=== PATIENT | female | born 1990 | race Caucasian/White ===

== ENCOUNTER 2018-08-07 23:30 | Emergency (ER) | payer OTHER, SELFPAY ==
[2018-08-07 23:36] VITALS: BP 128/68; PULSE 78; RESP 16; TEMP 36.8; O2SAT 99
--- NOTE | 2018-08-07 23:43 | W.ED.GENAD ---
Discharge Plan Disposition Patient Disposition: HOME Condition: Good Discharge Details Chief Complaint: Orthopedic Clinical Impression: Plantar fasciitis Primary Care Provider: Sara Pagan ED Provider: Jakub Neves Home Meds and New Rx's Prescriptions: No Action epinephrine [EpiPen 2-Cam] 0.3 MG/0.3 ML auto-injector 0.3 mg IM ONCE Qty: 2 RF: 12 ibuprofen 800 MG tablet 800 mg PO TID PRNQty: 60 RF: 0 Discharge Instructions Instructions: Plantar Fasciitis Exercises (GEN), Plantar Fasciitis (ED) Additional Instructions: Your clinical symptoms are indicative of plantar fasciitis. Please take maximum of 600 mg of ibuprofen every 6 hours and 1000 mg of Tylenol every 6 hours. Please freeze a bottle of water, and roll it under your foot 8-16 times per day for 5 minutes each time. Please perform the stretches as directed. Please purchase new shoes with good cushion and arch support. Please follow-up promptly with your primary care provider for removal of the potential callus versus plantar wart. If you notice any worsening of your symptoms, or any new symptoms such as vomiting, diarrhea, fever, chills, shortness of breath, chest pain, numbness, weakness, or fainting , please return immediately to the emergency department for reevaluation. Please follow up with your primary care provider as soon as possible for reassessment and reevaluation. As always, it was a pleasure participating in your medical care today. Referrals: Sara Pagan, GEOPHYSICAL DRAFTER [Primary Care Provider] - Medical Decision Making This is a very pleasant 28-year-old female who presents with right heel pain for the last 1 to 2 weeks, worsened with walking and pressure on her right heel. Exam demonstrates reproducible tenderness on the base of the calcaneus over the plantar fascia. There is also a small lesion which I suspect is a small plantar wart over the area as well which is most likely significantly worsening her symptoms. Signs and symptoms appear clinically consistent with plantar fasciitis. With no history of trauma and no physical exam indication of fracture, I do not think that imaging is indicated. I did discuss this with the patient and she would also like to hold off on imaging for the time being. We will give a dose of Decadron here, Toradol, recommend continued NSAIDs, regular ice multiple times throughout the day, new shoes with arch support, and follow-up with your PCP for removal of the plantar wart history of note liquid nitrogen here. We discussed red flags which to return the patient understands. I have extensively reviewed the treatment plan and discharge instructions with the patient. I have addressed all patient concerns at this time. The patient was made aware of what symptoms to monitor for that would warrant a return to the emergency department. Discussed the plan with the patient, they demonstrate verbal understanding and agreement with our assessment and plan at this time. HPI General Date/Time Provider Initiated Documentation: 08/07/18 23:31. HPI Narrative: This is a very pleasant 28-year-old female who presents today for evaluation of right heel pain. The patient states that for the last 1 to 2 weeks she has had gradually worsening right heel pain. It is worse when she stands and walks. Her job requires her to walk around a significant amount. She describes the pain as achy sharp sensation only present when she steps down and applies weight to her foot. She also has noticed a small lump on the arch of her foot. She denies any numbness tingling or weakness. She denies any trauma, fall, significant joints. She denies any other complaints or modifying factors. She denies any previous injuries to the foot. Related Data Home Medications Medication Instructions Recorded Confirmed epinephrine [EpiPen 2-Cam] 0.3 mg IM ONCE #2 syringe 01/23/17 08/07/18 ibuprofen 800 mg PO TID PRN #60 tab-cap 01/23/17 08/07/18 Previous Rx's Medication Instructions Recorded epinephrine [EpiPen 2-Cam] 0.3 mg IM ONCE #2 syringe 01/23/17 Allergies Allergy/AdvReac Type Severity Reaction Status Date / Time venom-honey bee Allergy Intermediate Anaphylaxsi Unverified 08/07/18 23:41 [bee venom (honey bee)] s General Stated Complaint: Orthopedic RADHA: 4 Review of Systems Review of Systems All systems reviewed & are unremarkable except as noted in HPI and below PFSH Medical History Depression Paresthesia Shoulder pain Skin lesion of chest wall Surgical History Biopsy, Soft Tissue (01/20/17) section wisdom tooth extracton Family History Sister Hypertension Grandfather Myocardial infarction Grandmother Myocardial infarction Grandmother Hyperlipidemia Hypertension Stroke Father Alcohol abuse Mother Asthma Social History Smoking/Tobacco Use Status: Current every day Tobacco Type: cigarettes Alcohol Intake: never Drug use: Never Substance use type: does not use Do you feel safe at home: Yes Do you feel safe in your relationship?: Yes Exam Narrative Exam Narrative: 1.Const: Well-nourished, Well-developed, appearing stated age 2.Eyes: PERRL, no conjunctival injection, and symmetrical lids. 3.ENT: Atraumatic external nose and ears. Moist MM. Neck: Symmetric, trachea midline, No thyromegaly. 4.CVS: +S1/S2, No murmurs or gallops. Peripheral pulses 2+ and equal in all extremities. Brisk capillary refill in all extremities. 5.RESP: Unlabored respiratory effort. Clear to auscultation bilaterally. No wheezes rales or rhonchi 6.GI: Soft, Nontender/Nondistended, No hepatosplenomegaly. No guarding or rebound. 7.MSK: Normocephalic/Atraumatic, Extremities w/o deformity. No cyanosis or clubbing, Normal movement of all extremities. Right foot demonstrates no significant lesions or traumatic abnormalities. Patient does have tenderness over the base of the calcaneus, as well as some superficial tenderness on the arch by the plantar fascia. There is also a small lesion I suspect to be a small plantar wart. This is also notably tender. No evidence of bleeding, bruising, or other significant abnormalities. No tenderness on palpation throughout the rest of the foot. notable calluses throughout. 8.Skin: Warm, Dry. No rashes or lesions. 9.Neuro: tub wash operator II-XII grossly intact. Sensation grossly intact, no focal neurologic deficits. 10.Psych: (AAO) x3. Appropriate mood and affect Course Vital Signs Temperature 36.8 C 08/07/18 23:36 Pulse 78 08/07/18 23:36 Respiratory Rate 16 08/07/18 23:36 Blood Pressure 128/68 08/07/18 23:36 Pulse Oximetry 99 08/07/18 23:36 Temperature 36.8 C 08/07/18 23:36 Temperature Source Temporal Artery Scan 08/07/18 23:36 Pulse 78 08/07/18 23:36 Respiratory Rate 16 08/07/18 23:36 Respiratory Effort Short of Breath 08/07/18 23:40 Blood Pressure 128/68 08/07/18 23:36 Blood Pressure Position Sitting 08/07/18 23:36 Pulse Oximetry 99 08/07/18 23:36 Oxygen Delivery Method Room Air 08/07/18 23:36 Oxygen Flow Rate 0 08/07/18 23:36 Pain Level 9 08/07/18 23:36
[2018-08-07] MEDS: Dexamethasone 4 MG TAB 12 MG PO (23:47)
[2018-08-07] MEDS: Ketorolac 30 MG/ML VIAL IM (23:48)
--- NOTE | 2018-08-07 23:49 | ED.GENADUL_ITS ---
Discharge Plan Disposition Patient Disposition: HOME Condition: Good Discharge Details Chief Complaint: Orthopedic Clinical Impression: Plantar fasciitis Primary Care Provider: Sara Pagan ED Provider: Jakub Neves Home Meds and New Rx's Prescriptions: No Action epinephrine [EpiPen 2-Cam] 0.3 MG/0.3 ML auto-injector 0.3 mg IM ONCE Qty: 2 RF: 12 ibuprofen 800 MG tablet 800 mg PO TID PRNQty: 60 RF: 0 Discharge Instructions Instructions: Plantar Fasciitis Exercises (GEN), Plantar Fasciitis (ED) Additional Instructions: Your clinical symptoms are indicative of plantar fasciitis. Please take maximum of 600 mg of ibuprofen every 6 hours and 1000 mg of Tylenol every 6 hours. Please freeze a bottle of water, and roll it under your foot 8-16 times per day for 5 minutes each time. Please perform the stretches as directed. Please purchase new shoes with good cushion and arch support. Please follow-up promptly with your primary care provider for removal of the potential callus versus plantar wart. If you notice any worsening of your symptoms, or any new symptoms such as vomiting, diarrhea, fever, chills, shortness of breath, chest pain, numbness, weakness, or fainting , please return immediately to the emergency department for reevaluation. Please follow up with your primary care provider as soon as possible for reassessment and reevaluation. As always, it was a pleasure participating in your medical care today. Referrals: Sara Pagan, GREASER HELPER [Primary Care Provider] - Medical Decision Making This is a very pleasant 28-year-old female who presents with right heel pain for the last 1 to 2 weeks, worsened with walking and pressure on her right heel. Exam demonstrates reproducible tenderness on the base of the calcaneus over the plantar fascia. There is also a small lesion which I suspect is a small plantar wart over the area as well which is most likely significantly worsening her symptoms. Signs and symptoms appear clinically consistent with plantar fasciitis. With no history of trauma and no physical exam indication of fracture, I do not think that imaging is indicated. I did discuss this with the patient and she would also like to hold off on imaging for the time being. We will give a dose of Decadron here, Toradol, recommend continued NSAIDs, regular ice multiple times throughout the day, new shoes with arch support, and follow- up with your PCP for removal of the plantar wart history of note liquid nitrogen here. We discussed red flags which to return the patient understands. I have extensively reviewed the treatment plan and discharge instructions with the patient. I have addressed all patient concerns at this time. The patient was made aware of what symptoms to monitor for that would warrant a return to the emergency department. Discussed the plan with the patient, they demonstrate verbal understanding and agreement with our assessment and plan at this time. HPI General Date/Time Provider Initiated Documentation: 08/07/18 23:31 . HPI Narrative: This is a very pleasant 28-year-old female who presents today for evaluation of right heel pain. The patient states that for the last 1 to 2 weeks she has had gradually worsening right heel pain. It is worse when she stands and walks. Her job requires her to walk around a significant amount. She describes the pain as achy sharp sensation only present when she steps down and applies weight to her foot. She also has noticed a small lump on the arch of her foot. She denies any numbness tingling or weakness. She denies any trauma, fall, significant joints. She denies any other complaints or modifying factors. She denies any previous injuries to the foot. Related Data Home Medications Medication Instructions Recorded Confirmed epinephrine [EpiPen 2-Cam] 0.3 mg IM ONCE #2 syringe 01/23/17 08/07/18 ibuprofen 800 mg PO TID PRN #60 tab-cap 01/23/17 08/07/18 Previous Rx's Medication Instructions Recorded epinephrine [EpiPen 2-Cam] 0.3 mg IM ONCE #2 syringe 01/23/17 Allergies Allergy/AdvReac Type Severity Reaction Status Date / Time venom-honey bee Allergy Intermediate Anaphylaxsi Unverified 08/07/18 23:41 [bee venom (honey bee)] s General Stated Complaint: Orthopedic RADHA: 4 Review of Systems Review of Systems All systems reviewed & are unremarkable except as noted in HPI and below PFSH Medical History Depression Paresthesia Shoulder pain Skin lesion of chest wall Surgical History Biopsy, Soft Tissue (01/20/17) section wisdom tooth extracton Family History Sister Hypertension Grandfather Myocardial infarction Grandmother Myocardial infarction Grandmother Hyperlipidemia Hypertension Stroke Father Alcohol abuse Mother Asthma Social History Smoking/Tobacco Use Status: Current every day Tobacco Type: cigarettes Alcohol Intake: never Drug use: Never Substance use type: does not use Do you feel safe at home: Yes Do you feel safe in your relationship?: Yes Exam Narrative Exam Narrative: 1.Const: Well-nourished, Well-developed, appearing stated age 2.Eyes: PERRL, no conjunctival injection, and symmetrical lids. 3.ENT: Atraumatic external nose and ears. Moist MM. Neck: Symmetric, trachea midline, No thyromegaly. 4.CVS: +S1/S2, No murmurs or gallops. Peripheral pulses 2+ and equal in all extremities. Brisk capillary refill in all extremities. 5.RESP: Unlabored respiratory effort. Clear to auscultation bilaterally. No wheezes rales or rhonchi 6.GI: Soft, Nontender/Nondistended, No hepatosplenomegaly. No guarding or rebound. 7.MSK: Normocephalic/Atraumatic, Extremities w/o deformity. No cyanosis or clubbing, Normal movement of all extremities. Right foot demonstrates no si gnificant lesions or traumatic abnormalities. Patient does have tenderness over the base of the calcaneus, as well as some superficial tenderness on the arch by the plantar fascia. There is also a small lesion I suspect to be a small plantar wart. This is also notably tender. No evidence of bleeding, bruising, or other significant abnormalities. No tenderness on palpation throughout the rest of the foot. notable calluses throughout. 8.Skin: Warm, Dry. No rashes or lesions. 9.Neuro: insulator helper II-XII grossly intact. Sensation grossly intact, no focal neurologic deficits. 10.Psych: (AAO) x3. Appropriate mood and affect Course Vital Signs Temperature 36.8 C 08/07/18 23:36 Pulse 78 08/07/18 23:36 Respiratory Rate 16 08/07/18 23:36 Blood Pressure 128/68 08/07/18 23:36 Pulse Oximetry 99 08/07/18 23:36 Temperature 36.8 C 08/07/18 23:36 Temperature Source Temporal Artery Scan 08/07/18 23:36 Pulse 78 08/07/18 23:36 Respiratory Rate 16 08/07/18 23:36 Respiratory Effort Short of Breath 08/07/18 23:40 Blood Pressure 128/68 08/07/18 23:36 Blood Pressure Position Sitting 08/07/18 23:36 Pulse Oximetry 99 08/07/18 23:36 Oxygen Delivery Method Room Air 08/07/18 23:36 Oxygen Flow Rate 0 08/07/18 23:36 Pain Level 9 08/07/18 23:36
== END 2018-08-07 23:54 | disposition home or self-care (01) ==
LOC: ER 08-08 00:02
PROVIDERS: Emergency Provider Student in an Organized Health Care Education/Training Program; PCP Nurse Practitioner
DX: M72.2 Plantar fascial fibromatosis (principal)
CPT/HCPCS: 96374; 99284; J1885; J8540

== ENCOUNTER 2018-08-09 12:22 | Emergency (ER) | payer OTHER, SELFPAY ==
--- NOTE | 2018-08-09 12:25 | W.ED.GENAD ---
Discharge Plan Disposition Patient Disposition: HOME Condition: Stable Discharge Details Chief Complaint: Orthopedic Clinical Impression: Contusion of foot Primary Care Provider: Sara Pagan ED Provider: Gilma Loving Home Meds and New Rx's Prescriptions: Continued epinephrine [EpiPen 2-Cam] 0.3 MG/0.3 ML auto-injector 0.3 mg IM ONCE Qty: 2 RF: 12 ibuprofen 800 MG tablet 800 mg PO TID PRNQty: 60 RF: 0 Discharge Instructions Instructions: Crutch Instructions (ED), Foot Contusion (ED) Additional Instructions: Please return immediately to the emergency department if you develop any new or worsening symptoms or if you become otherwise concerned. It is extremely important that you call as soon as possible to make an appointment to be seen by your primary care doctor in follow-up for this visit. Referrals: Sara Pagan, REAL ESTATE OFFICER [Primary Care Provider] - Discharge Data Discharge Date/Time-TO BE ENTERED AT DEPARTURE: 08/09/18 14:18 Medical Decision Making Crystal Piedra is a 28-year-old woman with history of asthma who presented to the emergency department with left foot pain after accidentally kicking a metal door last night. On exam patient is well and nontoxic appearing. Left foot and ankle diffusely tender without skin wound or overlying skin changes, no edema. Concern for fracture versus contusion. Exam/history is not consistent with vascular injury, infectious etiology, fracture of the proximal tibia/fibula. Plan for x-ray foot and ankle. Foot and ankle x-rays reviewed by myself in conjunction with radiology: No acute findings Concern for likely contusion. Plan for lace up ankle stabilizer, crutches, weightbearing as tolerated, p.o. ibuprofen for pain. I had a lengthy discussion with patient regarding return to emergency department precautions, importance of outpatient follow-up with her PCP, and home care. Patient verbalized understanding of plan was amenable. Patient was discharged to home with clear plan for outpatient follow-up. All questions were answered. Medical Records Medical records reviewed: Yes I reviewed the patient's medical records. HPI General Mode of arrival: ambulatory. Date/Time Provider Initiated Documentation: 08/09/18 12:25. Limitations to Documentation: no limitations. Information obtained by: patient, RN notes reviewed and old records reviewed. HPI Narrative: Crystal Piedra 28 y/o with history of asthma presenting to the emergency department with left foot pain. Patient reports that last night she accidentally kicked a metal door, and has had pain in her foot since then. She denies any other injury or pain. No numbness or weakness. No skin wound. Patient reports pain with weightbearing, and has been limping since the time of the injury. Feels otherwise well in her usual state of health. Related Data Home Medications Medication Instructions Recorded Confirmed epinephrine [EpiPen 2-Cam] 0.3 mg IM ONCE #2 syringe 01/23/17 08/09/18 ibuprofen 800 mg PO TID PRN #60 tab-cap 01/23/17 08/09/18 Previous Rx's Medication Instructions Recorded epinephrine [EpiPen 2-Cam] 0.3 mg IM ONCE #2 syringe 01/23/17 Allergies Allergy/AdvReac Type Severity Reaction Status Date / Time venom-honey bee Allergy Intermediate Anaphylaxsi Unverified 08/09/18 12:40 [bee venom (honey bee)] s General RADHA: 4 Review of Systems Review of Systems Constitutional: denies fevers Eyes: denies eye pain ENT: denies facial pain, dental pain, sore throat Cardiovascular: denies chest pain Respiratory: denies SOB, cough GI: denies abdominal pain, vomiting, diarrhea : denies flank pain MSK: denies back pain, neck pain, reports foot pain as per HPI Skin: denies rash Neuro: denies headaches, numbness, weakness PFSH Medical History Depression Paresthesia Shoulder pain Skin lesion of chest wall Surgical History Biopsy, Soft Tissue (01/20/17) section wisdom tooth extracton Family History Sister Hypertension Grandfather Myocardial infarction Grandmother Myocardial infarction Grandmother Hyperlipidemia Hypertension Stroke Father Alcohol abuse Mother Asthma Social History Smoking/Tobacco Use Status: Current every day Tobacco Type: cigarettes Alcohol Intake: never Drug use: Never Substance use type: does not use Do you feel safe at home: Yes Do you feel safe in your relationship?: Yes Exam Narrative Exam Narrative: Constitutional: well and [id number], pleasant, conversing normally HENT: head atraumatic/normocephalic/normal inspection, mucous membranes moist Eyes: conjunctiva normal, sclera normal, pupils 3mm b/l Neck: no stridor, normal ROM, trachea midline Chest: normal inspection Resp: normal work of breathing Cardio: normal rate, normal rhythm Skin: warm, dry, normal color, no rash Neuro: alert, not altered, grossly non-focal, normal tone Ext: no edema, left foot diffusely tender to palpation without overlying skin changes, DP pulse intact, normal sensation throughout the foot, left ankle with mild tenderness to palpation diffusely, able to range with some pain. Patient reports she is unable to range her toes secondary to pain. Brisk cap refill of the toes. Midshaft tib-fib and proximal tib-fib nontender to palpation. Psych: normal mood, normal affect, normal behavior
[2018-08-09 12:27] VITALS: BP 127/71; PULSE 81; RESP 16; TEMP 37.4; O2SAT 98
--- NOTE | 2018-08-09 12:34 | DI.RAD_ITS ---
SYMPTOMS/DIAGNOSIS: TRAUMA, FOOT PAIN, ANKLE PAIN LEFT ANKLE: Three views. No acute fracture or dislocation is identified. LEFT FOOT: Three views. No acute fracture or dislocation is present.
--- NOTE | 2018-08-09 12:40 | ED.GENADUL_ITS ---
Discharge Plan Disposition Patient Disposition: HOME Condition: Stable Discharge Details Chief Complaint: Orthopedic Clinical Impression: Contusion of foot Primary Care Provider: Saar Pagan ED Provider: Gilma Loving Home Meds and New Rx's Prescriptions: Continued epinephrine [EpiPen 2-Cam] 0.3 MG/0.3 ML auto-injector 0.3 mg IM ONCE Qty: 2 RF: 12 ibuprofen 800 MG tablet 800 mg PO TID PRNQty: 60 RF: 0 Discharge Instructions Instructions: Crutch Instructions (ED), Foot Contusion (ED) Additional Instructions: Please return immediately to the emergency department if you develop any new or worsening symptoms or if you become otherwise concerned. It is extremely important that you call as soon as possible to make an appointment to be seen by your primary care doctor in follow-up for this visit. Referrals: Sara Pagan, [employer] REPAIRER [Primary Care Provider] - Discharge Data Discharge Date/Time-TO BE ENTERED AT DEPARTURE: 08/09/18 14:18 Medical Decision Making Crystal Piedra is a 28-year-old woman with history of asthma who presented to the emergency department with left foot pain after accidentally kicking a metal door last night. On exam patient is well and nontoxic appearing. Left foot and ankle diffusely tender without skin wound or overlying skin changes, no edema. Concern for fracture versus contusion. Exam/history is not consistent with vascular injury, infectious etiology, fracture of the proximal tibia/fibula. Plan for x-ray foot and ankle. Foot and ankle x-rays reviewed by myself in conjunction with radiology: No acute findings Concern for likely contusion. Plan for lace up ankle stabilizer, crutches, weightbearing as tolerated, p.o. ibuprofen for pain. I had a lengthy discussion with patient regarding return to emergency department precautions, importance of outpatient follow-up with her PCP, and home care. Patient verbalized understanding of plan was amenable. Patient was discharged to home with clear plan for outpatient follow-up. All questions were answered. Medical Records Medical records reviewed: Yes I reviewed the patient's medical records. HPI General Mode of arrival: ambulatory . Date/Time Provider Initiated Documentation: 08/09/18 12:25 . Limitations to Documentation: no limitations . Information obtained by: patient, RN notes reviewed and old records reviewed . HPI Narrative: Crystal Piedra 28 y/o with history of asthma presenting to the emergency department with left foot pain. Patient reports that last night she accidentally kicked a metal door, and has had pain in her foot since then. She denies any other injury or pain. No numbness or weakness. No skin wound. Patient reports pain with weightbearing, and has been limping since the time of the injury. Feels otherwise well in her usual state of health. Related Data Home Medications Medication Instructions Recorded Confirmed epinephrine [EpiPen 2-Cam] 0.3 mg IM ONCE #2 syringe 01/23/17 08/09/18 ibuprofen 800 mg PO TID PRN #60 tab-cap 01/23/17 08/09/18 Previous Rx's Medication Instructions Recorded epinephrine [EpiPen 2-Cam] 0.3 mg IM ONCE #2 syringe 01/23/17 Allergies Allergy/AdvReac Type Severity Reaction Status Date / Time venom-honey bee Allergy Intermediate Anaphylaxsi Unverified 08/09/18 12:40 [bee venom (honey bee)] s General RADHA: 4 Review of Systems Review of Systems Constitutional: denies fevers Eyes: denies eye pain ENT: denies facial pain, dental pain, sore throat Cardiovascular: denies chest pain Respiratory: denies SOB, cough GI: denies abdominal pain, vomiting, diarrhea : denies flank pain MSK: denies back pain, neck pain, reports foot pain as per HPI Skin: denies rash Neuro: denies headaches, numbness, weakness PFSH Medical History Depression Paresthesia Shoulder pain Skin lesion of chest wall Surgical History Biopsy, Soft Tissue (01/20/17) section wisdom tooth extracton Family History Sister Hypertension Grandfather Myocardial infarction Grandmother Myocardial infarction Grandmother Hyperlipidemia Hypertension Stroke Father Alcohol abuse Mother Asthma Social History Smoking/Tobacco Use Status: Current every day Tobacco Type: cigarettes Alcohol Intake: never Drug use: Never Substance use type: does not use Do you feel safe at home: Yes Do you feel safe in your relationship?: Yes Exam Narrative Exam Narrative: Constitutional: well and [id number], pleasant, conversing normally HENT: head atraumatic/normocephalic/normal inspection, mucous membranes moist Eyes: conjunctiva normal, sclera normal, pupils 3mm b/l Neck: no stridor, normal ROM, trachea midline Chest: normal inspection Resp: normal work of breathing Cardio: normal rate, normal rhythm Skin: warm, dry, normal color, no rash Neuro: alert, not altered, grossly non-focal, normal tone Ext: no edema, left foot diffusely tender to palpation without overlying skin changes, DP pulse intact, normal sensation throughout the foot, left ankle with mild tenderness to palpation diffusely, able to range with some pain. Patient reports she is unable to range her toes secondary to pain. Brisk cap refill of the toes. Midshaft tib-fib and proximal tib-fib nontender to palpation. Psych: normal mood, normal affect, normal behavior
[2018-08-09] MEDS: Ibuprofen 600 MG TAB PO (14:02)
== END 2018-08-09 14:18 | disposition home or self-care (01) ==
PROVIDERS: Emergency Provider Student in an Organized Health Care Education/Training Program; PCP Nurse Practitioner
DX: S90.32XA Contusion of left foot, initial encounter (principal); M25.572 Pain in left ankle and joints of left foot; W22.8XXA Striking against or struck by other objects, initial encounter
CPT/HCPCS: 29515; 99284; 73610; 73630; 99282; E0114; L1902

== ENCOUNTER 2018-09-26 01:02 | Emergency (ER) | payer SELFPAY ==
[2018-09-26 01:07] VITALS: BP 123/79; PULSE 68; RESP 16; TEMP 36.9; O2SAT 98
--- NOTE | 2018-09-26 01:15 | ED.GENADUL_ITS ---
Discharge Plan Disposition Patient Disposition: HOME Condition: Stable Discharge Details Chief Complaint: DentalOral Clinical Impression: Odontalgia, Fracture of tooth Primary Care Provider: Sara Pagan ED Provider: Vernell Gomez Home Meds and New Rx's Prescriptions: New penicillin V potassium 500 mg tablet 500 mg PO QID 7 Days Qty: 28 RF: 0 Continued epinephrine [EpiPen 2-Cam] 0.3 MG/0.3 ML auto-injector 0.3 mg IM ONCE Qty: 2 RF: 12 ibuprofen 800 MG tablet 800 mg PO TID PRNQty: 60 RF: 0 Discharge Instructions Instructions: Acute Dental Trauma (ED), Toothache (ED) Additional Instructions: Call your dentist on Thursday to schedule a follow-up appointment for rachel rivera. Alternate Tylenol and Motrin as needed and directed for pain. Return to the emergency department if you develop any worsening or new concerning symptoms of fever, increased pain, redness, swelling, difficulty breathing or swallowing. Discharge Data Discharge Physician: Vernell Gomez Medical Decision Making 28-year-old female presents with left upper tooth pain for the past week after she broke her tooth while eating. Denies fever but does admit to radiation pain to her left cheek and ear. Vitals within normal limits. Dental fracture with tenderness to palpation of tooth #14 noted. No abscess noted. Patient speaking in full sentences, no drooling, submandibular swelling, signs of Anthony's angina. Normal ear exam and oropharynx. Dental pain likely due to dental fracture/exposure of deep contents with concern for possible infection. Patient instructed to alternate Tylenol and Motrin. 1 dose of penicillin given here as well as prescription. She was given the dental follow-up list and instructed to call on Thursday for follow-up and to return here at any time if worse. HPI General Mode of arrival: ambulatory . Date/Time Provider Initiated Documentation: 09/26/18 01:14 . Limitations to Documentation: no limitations . Information obtained by: patient . HPI Narrative: Patient is a 28-year-old female presents with left upper dental pain for the past week after she broke her tooth while eating. Patient states she was eating [employer] when she felt her left upper tooth break. She states she has had increasing pain since then which is radiating up her left facial cheek just to below her eye as well as to her left ear. She denies any blurry vision, fever, difficulty swallowing, difficulty breathing, sore throat, decreased hearing. She has been taking Motrin for pain. She states she was trying to see [facility] for follow-up but is unsure if she can follow-up here. Related Data Home Medications Medication Instructions Recorded Confirmed epinephrine [EpiPen 2-Cam] 0.3 mg IM ONCE #2 syringe 01/23/17 09/26/18 ibuprofen 800 mg PO TID PRN #60 tab-cap 01/23/17 09/26/18 penicillin V potassium 500 mg PO QID 7 Days #28 tab 09/26/18 Previous Rx's Medication Instructions Recorded epinephrine [EpiPen 2-Cam] 0.3 mg IM ONCE #2 syringe 01/23/17 penicillin V potassium 500 mg PO QID 7 Days #28 tab 09/26/18 Allergies Allergy/AdvReac Type Severity Reaction Status Date / Time venom-honey bee Allergy Intermediate Anaphylaxsi Unverified 09/26/18 01:15 [bee venom (honey bee)] s General Stated Complaint: DentalOral RADHA: 4 Review of Systems Review of Systems All systems reviewed & are unremarkable except as noted in HPI and below Constitutional Reports as per HPI, Denies chills and Denies fever(s) Eyes Denies blurry vision ENT Denies dizziness, Denies sore throat and Denies throat swelling Cardiovascular Denies chest pain and Denies dyspnea Respiratory Denies cough and Denies dyspnea Gastrointestinal Denies abdominal pain, Denies diarrhea and Denies vomiting Genitourinary Denies hematuria and Denies dysuria Musculoskeletal Denies back pain and Denies numbness Integumentary/Breasts Denies lesions and Denies rash Neurologic Denies dizziness, Denies focal weakness and Denies numbness Allergic/Immunologic Denies throat swelling [facility] Surgical History (Updated 12/16/17 @ 14:37 by Exosite MA) Biopsy, Soft Tissue (01/20/17) section wisdom tooth extracton Family History Sister Hypertension Grandfather Myocardial infarction Grandmother Myocardial infarction Grandmother Hyperlipidemia Hypertension Stroke Father Alcohol abuse Mother Asthma Social History Smoking/Tobacco Use Status: Current every day Tobacco Type: cigarettes Alcohol Intake: never Drug use: Never Substance use type: does not use Do you feel safe at home: Yes Do you feel safe in your relationship?: Yes Exam Const General: cooperative, healthy appearing and no acute distress HENMT Head: normal to inspection Ears: hearing grossly normal bilaterally, external ears normal and TM's normal bilaterally General nose exam: external nose normal Face and sinus: normal facial exam Teeth image: 1. There is a dental fracture with portion of tooth missing on anterior aspect of likely tooth #14. There is no surrounding abscess. Tooth is tender to palpation. No pulp or dentin exposed. Throat: posterior oropharynx normal Eyes General: appearance normal, both eyes and all related structures Pupils: PERRL EOM: EOM intact bilaterally Neck Neck: normal visual inspection and No submandibular swelling Lymphatic: no lymphadenopathy noted Chest Chest: normal inspection of the chest and no tenderness Resp Effort & Inspection: normal respiratory effort and able to speak in complete se ntences Cardio Rate: regular rate Skin General skin exam: no rashes or lesions noted Neuro General: alert, awake and oriented x3 Cognition: normal cognition Speech: speech normal Motor: muscle tone normal throughout Sensory Exam: no sensory deficits noted Extrem General: normal to inspection, full ROM, normal capillary refill, no calf tenderness bilaterally and no edema Psych Appearance: grossly normal Mental Status: mental status grossly normal Speech and Movement: speech and movement normal Affect: normal affect Course Vital Signs Temperature 98.4 F 09/26/18 01:07 Pulse 68 09/26/18 01:07 Respiratory Rate 16 09/26/18 01:07 Blood Pressure 123/79 09/26/18 01:07 Pulse Oximetry 98 09/26/18 01:07 Temperature 98.4 F 09/26/18 01:07 Temperature Source Temporal Artery Scan 09/26/18 01:07 Pulse 68 09/26/18 01:07 Respiratory Rate 16 09/26/18 01:07 Respiratory Effort 09/26/18 01:07 Blood Pressure 123/79 09/26/18 01:07 Pulse Oximetry 98 09/26/18 01:07 Oxygen Delivery Method Room Air 09/26/18 01:07 Oxygen Flow Rate 0 09/26/18 01:07 Pain Level 10 09/26/18 01:07
[2018-09-26] MEDS: Penicillin V POTASSIUM 500 MG TAB PO (01:37)
== END 2018-09-26 06:00 | disposition home or self-care (01) ==
LOC: ER 01:43
PROVIDERS: Emergency Provider Physician Assistant; PCP Nurse Practitioner
DX: K08.89 Other specified disorders of teeth and supporting structures (principal); K02.9 Dental caries, unspecified
CPT/HCPCS: 99283

== ENCOUNTER 2018-12-21 13:48 | Outpatient (REF) | payer SELFPAY ==
--- NOTE | 2018-12-21 13:15 | PAPFT_PTH ---
PATIENT: Crystal Piedra LOC: [facility] U#:[id number] AGE/SX: 28/F ROOM: RE12/21/[address]: Sara Pagan APRN : 1990 BED: DIS: 12/21/2018 SPEC #: [id number] RECD: 12/22/18 12:42 STATUS: BENJAMIN REStephanie #: [id number] NOHEMY: 12/21/18 13:[address]: Sara Pagan DEPT: [facility] Cytology RECD BY: Christina Stanton Tissues: 1 - CX/ENDOCX FOR PAP SMEARS Procedures: PAP THIN PREP/UVM Screening Comments: [id number] (CHLAMYDIA/GC)
[2018-12-23 12:52] LABS: Chlamydia Result Negative; GC Result Negative; Specimen Description SEE COMMENTS
== END 2018-12-21 14:08 ==
LOC: LBN 13:48
PROVIDERS: PCP Nurse Practitioner; Visit Provider Nurse Practitioner
DX: Z11.3 Encounter for screening for infections with a predominantly sexual mode of transmission (principal); Z12.4 Encounter for screening for malignant neoplasm of cervix; Z11.51 Encounter for screening for human papillomavirus (HPV)
CPT/HCPCS: 87491; 87591; 88142

== ENCOUNTER 2019-10-23 20:58 | Emergency (ER) | payer SELFPAY ==
[2019-10-23 21:05] VITALS: BP 133/75; PULSE 80; RESP 16; TEMP 36.7; O2SAT 97
--- NOTE | 2019-10-23 21:15 | DI.RAD_ITS ---
EXAM: XR FINGER RT LITTLE CLINICAL HISTORY: laceration TECHNIQUE: COMPARISON: No exams were available for comparison FINDINGS: Three views were obtained. There is reportedly a a history of laceration. No fracture is identified IMPRESSION: RADIATION DOSE DELIVERED: Total DLP
--- NOTE | 2019-10-23 21:58 | ED.GENADUL_ITS ---
Discharge Plan Disposition Patient Disposition: HOME Condition: Stable Discharge Details Chief Complaint: Laceration Clinical Impression: Finger laceration Primary Care Provider: Sara Pagan ED Provider: Gilma Loving Home Meds and New Rx's Prescriptions: Continued trazodone 50 mg tablet 50 mg PO HS PRN (Reason: sleep) Qty: 30 RF: 3 escitalopram oxalate 20 mg tablet 20 mg PO DAILY Qty: 90 RF: 3 epinephrine [EpiPen 2-Cam] 0.3 MG/0.3 ML auto-injector 0.3 mg IM ONCE Qty: 2 RF: 12 Discharge Instructions Instructions: Finger Laceration (ED), Skin Adhesive Care (ED) Additional Instructions: Please return immediately to the emergency department if you develop any new or worsening symptoms, if your condition does not improve as expected, or if you become otherwise concerned. It is extremely important that you call soon as possible to make an appointment to be seen in follow-up for this visit by your primary care doctor. Referrals: Arsenio Lugo MD [[facility] STAFF PHYSICIAN] - Sara Pagan NP [Primary Care Provider] - Discharge Data Discharge Date/Time-TO BE ENTERED AT DEPARTURE: 10/23/19 22:40 Medical Decision Making Crystal Piedra is a 29-year-old woman with history of anxiety, depression who presented to the emergency department with laceration to distal left fifth digit. On exam patient is well and nontoxic-appearing. 1 cm laceration to the left fifth digit at the level of the DIP joint, sensory deficit to lateral aspect of the digit distal to the wound. Wound is non-gaping, no apparent foreign body. Concern for possible nerve injury. Plan for x-ray to eval for foreign body. Exam/history is not consistent with flexor/extensor tendon injury, bony pathology, other wound. X-ray negative. Laceration irrigated copiously under pressure. Repaired with Dermabond. Finger splint placed. I had a lengthy discussion with Patient regarding return to emergency department precautions, home care, and importance of outpatient follow-up with PCP and Ortho for numbness. Pt verbalizes understanding of the plan and is amenable. Patient discharged to home with clear plan for outpatient follow-up. All questions were answered. Disposition decision was made weighing the risks and benefits of hospitalization versus outpatient treatment, the risk for further decompensation, and the patient's wishes. Medical Records Medical records reviewed: Yes I reviewed the patient's medical records. Imaging Data Radiologic Study: Attestation: I personally reviewed and interpreted this imaging study as follows: Radiologist's impression: Exam(s) PROCEDURE INFORMATION: Exam: XR Left Finger(s) Exam date and time: 10/23/2019 9:42 PM Age: 29 years old Clinical indication: Other: Laceration TECHNIQUE: Imaging protocol: XR Left fingers. Views: Minimum 2 views. COMPARISON: No relevant prior studies available. FINDINGS: Bones/joints: Normal trabecular architecture is seen throughout with no acute fractures detected. Soft tissues: No discrete soft tissue defects detected. IMPRESSION: No acute findings. HPI General Mode of arrival: ambulatory . Date/Time Provider Initiated Documentation: 10/23/19 21:09 . Limitations to Documentation: no limitations . Information obtained by: patient, RN notes reviewed and old records reviewed . HPI Narrative: Helena Piedra is a 29-year-old woman with history of depression, anxiety presenting to the emergency department with laceration. 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 Patient reports that she and a colleague noticed broken glass on the floor, patient reached for the glass and sustained a laceration. Patient reports that piece was relatively large, unclear as to whether there could be retained foreign body. Patient reports that the lateral aspect of the finger distal to the wound feels numb to her. She denies any other injury. She denies any other pain or symptoms, no recent illness. Patient reports she was previously in her usual state of health. Patient states that she is unsure when her last tetanus was, she does not know whether it was more than 5 years ago or not. Related Data Home Medications Medication Instructions Recorded Confirmed epinephrine [EpiPen 2-Cam] 0.3 mg IM ONCE #2 syringe 01/23/17 10/23/19 trazodone 50 mg tablet 50 mg PO HS PRN #30 tab 08/11/19 10/23/19 escitalopram oxalate 20 mg tablet 20 mg PO DAILY #90 tab 08/30/19 10/23/19 Previous Rx's Medication Instructions Recorded epinephrine [EpiPen 2-Cam] 0.3 mg IM ONCE #2 syringe 01/23/17 trazodone 50 mg tablet 50 mg PO HS PRN #30 tab 08/11/19 escitalopram oxalate 20 mg tablet 20 mg PO DAILY #90 tab 08/30/19 Allergies Allergy/AdvReac Type Severity Reaction Status Date / Time venom-honey bee Allergy Intermediate Anaphylaxsi Verified 10/23/19 21:09 [bee venom (honey bee)] s General Stated Complaint: Laceration RADHA: 4 Review of Systems Narrative: Constitutional: denies fevers Eyes: denies eye pain ENT: denies ear pain, dental pain, sore throat Cardiovascular: denies chest pain Respiratory: denies SOB, cough GI: denies abdominal pain, vomiting : denies flank pain MSK: denies back pain, neck pain, arthralgias Skin: Reports wound as per HPI Neuro: denies headaches, weakness, reports numbness distal to wound fifth digit PFSH Medical History Acute serous otitis media of right ear (Acute) Anxiety (Chronic) Depression Depressive disorder (Chronic 02/06/16) Insomnia (Acute) Paresthesia Shoulder pain Skin lesion of chest wall Surgical History Biopsy, Soft Tissue (01/20/17) skin of chest - intradermal nevus section hddcruyzo-oiz-zryrubvnx wisdom tooth extracton Family History Sister Hypertension Grandfather Myocardial infarction Grandmother Myocardial infarction Grandmother , Stroke at age 86. Hyperlipidemia Hypertension Stroke Father Alcohol abuse Mother Asthma Social History Smoking/Tobacco Use Status: Current every day Tobacco Type: cigarettes Quit status: considering quitting Alcohol Intake: never Drug use: Never Substance use type: does not use Adopted: No Caregiver/Support person: No Foster care: No Household members: children Housing: apartment Number of Children: 1 Communication Needs: Corrective Lenses Education Level: college Details: some What type of physical activity do you participate in: walking Frequency: 1-2 times per week Seatbelt use: always Drive intox or ride w/intox regional truck driver: No Working smoke detector in home: Yes Fire extinguisher in home: Yes Carbon monox detector in home: Yes Firearms in home: No Do you feel safe at home: Yes Do you feel safe in your relationship?: Yes Exam Narrative Exam Narrative: Constitutional: well and [id number]-[id number], pleasant, conversing normally HENT: head atraumatic/normocephalic/normal inspection, mucous membranes moist Eyes: conjunctiva normal, sclera normal, pupils 3mm b/l Neck: no stridor, normal ROM, trachea midline Resp: normal work of breathing, no respiratory distress Cardio: normal rate, normal rhythm, radial pulses intact and symmetric Skin: warm, dry, normal color, no rash, 1 cm superficial laceration lateral aspect of left fifth digit at level of DIP joint, no bleeding Neuro: alert, not altered, grossly non-focal, normal tone, positive sensory deficit lateral aspect of tip of left fifth digit, loss of two-point discrimination in this area Ext: no edema Psych: normal mood, normal affect, normal behavior Course Vital Signs Vital signs: Vital Signs Temperature 36.7 C 10/23/19 21:05 Pulse 80 10/23/19 21:05 Respiratory Rate 16 10/23/19 21:05 Blood Pressure 133/75 10/23/19 21:05 Pulse Oximetry 97 10/23/19 21:05 Temperature 36.7 C 10/23/19 21:05 Temperature Source Skin 10/23/19 21:05 Pulse 80 10/23/19 21:05 Respiratory Rate 16 10/23/19 21:05 Respiratory Effort Non-Labored 10/23/19 21:08 Blood Pressure 133/75 10/23/19 21:05 Blood Pressure Position Sitting 10/23/19 21:05 Pulse Oximetry 97 10/23/19 21:05 Oxygen Delivery Method Room Air 10/23/19 21:05 Oxygen Flow Rate 0 10/23/19 21:05 Pain Level 8 10/23/19 21:05 Procedures Laceration Laceration 1: Site: hand Side (If applicable): left Size (cm): 1 Description: linear and clean Depth: simple, single layer Pre-repair: wound explored and irrigated extensively Skin layer closed with: other (dermabond)
--- NOTE | 2019-10-23 22:09 | DI.VRAD_ITS ---
PROCEDURE INFORMATION: Exam: XR Left Finger(s) Exam date and time: 10/23/2019 9:42 PM Age: 29 years old Clinical indication: Other: Laceration TECHNIQUE: Imaging protocol: XR Left fingers. Views: Minimum 2 views. COMPARISON: No relevant prior studies available. FINDINGS: Bones/joints: Normal trabecular architecture is seen throughout with no acute fractures detected. Soft tissues: No discrete soft tissue defects detected. IMPRESSION: No acute findings. Dictated and Authenticated by: Vikas Lr MD. Ordering:ZACKERY Dillard MD
[2019-10-23 22:38] VITALS: BP 130/66; PULSE 78; RESP 16; TEMP 36.7; O2SAT 97
== END 2019-10-23 22:40 | disposition home or self-care (01) ==
PROVIDERS: Emergency Provider Student in an Organized Health Care Education/Training Program; PCP Nurse Practitioner
DX: S61.216A Laceration without foreign body of right little finger without damage to nail, initial encounter (principal); W25.XXXA Contact with sharp glass, initial encounter; Y99.0 Civilian activity done for income or pay; R20.0 Anesthesia of skin
CPT/HCPCS: 12001; 29130; 81025; 99283; 73140; 99281

== ENCOUNTER 2020-07-16 21:30 | Emergency (ER) | payer OTHER, SELFPAY ==
[2020-07-16 21:36] VITALS: BP 147/78; PULSE 75; RESP 16; TEMP 36.8; O2SAT 97
--- NOTE | 2020-07-16 21:45 | DI.RAD_ITS ---
Exam(s) XR CHEST 2V PA LATERAL EXAM: XR CHEST 2V PA LATERAL CLINICAL HISTORY: cough and tight TECHNIQUE: 2D digital imaging was performed. COMPARISON: CR CHEST 2 VIEWS PA,LAT from 07/18/2017 FINDINGS: The heart size is normal. There is mildly increased peribronchial thickening and peribronchial nahed ngs. No focal consolidation, effusion or pneumothorax is seen. No bony abnormalities are identified . IMPRESSION: Mild bilateral perihilar infiltrates and bronchial thickening, infectious versus inflammatory pneumon itis. DATA REPOSITORY: RADIATION DOSE DELIVERED:
--- NOTE | 2020-07-16 21:59 | W.ED.GENAD ---
Discharge Plan Disposition Patient Disposition: HOME Condition: Improving Discharge Details Clinical Impression: Bronchospasm, acute Primary Care Provider: Sara Pagan ED Provider: Arsenio Miranda Home Meds and New Rx's Prescriptions: New prednisone 50 mg tablet 50 mg PO DAILY 5 Days Qty: 5 RF: 0 Continued escitalopram oxalate 20 mg tablet 20 mg PO DAILY Qty: 90 RF: 3 trazodone 100 mg tablet 100 mg PO HS PRN (Reason: insomnia) Qty: 30 RF: 1 bupropion HCl [Wellbutrin XL] 300 mg tablet extended release 24 hr 300 mg PO QAM Qty: 30 RF: 1 lorazepam 1 mg tablet 1 mg PO BID PRN (Reason: anxiety) Qty: 20 RF: 0 epinephrine [EpiPen 2-Cam] 0.3 MG/0.3 ML auto-injector 0.3 mg IM ONCE Qty: 2 RF: 12 Discharge Instructions Instructions: Bronchospasm (ED) Additional Instructions: Continue your routine medications. Please take prednisone as prescribed, next dose tomorrow. May use the provided inhaler as needed 1 to 2 puffs every 4. Return if you feel you need to use it greater than every 4 hours. Please follow-up with your regular doctor if not improved in 5 days time Medical Decision Making This is a 30-year-old female who presents from home. States he has had 1 week of feeling her neck glands swollen with a dry cough production of sputum. She was seen in outlying urgent care where she reports negative strep test and a negative Covid test. She was told she may have allergies and was placed on Flonase with minimal improvement. The patient is a smoker with a history of reactive airway disease. Does not currently have an inhaled beta agonist. On my exam she is well-appearing, conversant and oxygenating normally. She has mild submandibular lymphadenopathy and diminished breath sounds with end expiratory wheeze. Differential diagnosis includes seasonal allergies with bronchospasm, mild viral syndrome. Patient was referred for x-ray, given prednisone and albuterol inhaler HPI General Mode of arrival: ambulatory. Date/Time Provider Initiated Documentation: 07/16/20 21:30. Limitations to Documentation: no limitations. Information obtained by: patient. History of Present Illness 30 year old F presents to the emergency department with the chief complaint of Cough and short of breath, swollen glands , described as moderate, Quality is described as dull, and is localized to the neck and chest. Patient reports no radiation. Patient started experiencing this day(s) and it has been intermittent. No relieving factors improve symptom(s), No exacerbating factors reported . Patient notes cough; denies chest pain, fever/chills, shortness of breath and weakness. Patient did receive the following treatments prior to arrival, other (For wound) Related Data Home Medications Medication Instructions Recorded Confirmed epinephrine [EpiPen 2-Cam] 0.3 mg IM ONCE #2 syringe 01/23/17 10/23/19 escitalopram oxalate 20 mg tablet 20 mg PO DAILY #90 tab 08/30/19 10/23/19 bupropion HCl 300 mg 24 hr tablet, 300 mg PO QAM #30 tab 04/19/20 04/19/20 extended release lorazepam 1 mg tablet 1 mg PO BID PRN #20 tab 04/19/20 04/19/20 trazodone 100 mg tablet 100 mg PO HS PRN #30 tab 04/19/20 04/19/20 prednisone 50 mg PO DAILY 5 Days #5 tab 07/16/20 Previous Rx's Medication Instructions Recorded epinephrine [EpiPen 2-Cam] 0.3 mg IM ONCE #2 syringe 01/23/17 escitalopram oxalate 20 mg tablet 20 mg PO DAILY #90 tab 08/30/19 bupropion HCl 300 mg 24 hr tablet, 300 mg PO QAM #30 tab 04/19/20 extended release lorazepam 1 mg tablet 1 mg PO BID PRN #20 tab 04/19/20 trazodone 100 mg tablet 100 mg PO HS PRN #30 tab 04/19/20 prednisone 50 mg PO DAILY 5 Days #5 tab 07/16/20 Allergies Allergy/AdvReac Type Severity Reaction Status Date / Time venom-honey bee Allergy Intermediate Anaphylaxsi Verified 10/23/19 21:09 [bee venom (honey bee)] s General Stated Complaint: RespSymp RADHA: 4 Review of Systems Narrative: 6 systems reviewed and otherwise negative. Negative Covid test. Patient [facility] Medical History (Updated 07/16/20 @ 22:11 by Arsenio Miranda MD) Acute serous otitis media of right ear Anxiety Depression Depressive disorder (02/06/16) Insomnia Paresthesia Shoulder pain Skin lesion of chest wall Surgical History Biopsy, Soft Tissue (01/20/17) skin of chest - intradermal nevus section iyupyogic-pwj-aijivydzv wisdom tooth extracton Family History Sister Hypertension Grandfather Myocardial infarction Grandmother Myocardial infarction Grandmother , Stroke at age 86. Hyperlipidemia Hypertension Stroke Father Alcohol abuse Mother Asthma Social History Smoking/Tobacco Use Status: Current every day Tobacco Type: cigarettes Quit status: considering quitting Smoking risk assessment performed?: Yes Alcohol Intake: never Drug use: Never Substance use type: does not use Adopted: No Caregiver/Support person: No Foster care: No Household members: children Housing: apartment Number of Children: 1 Communication Needs: Corrective Lenses Education Level: college Details: some What type of physical activity do you participate in: walking Frequency: 1-2 times per week Seatbelt use: always Drive intox or ride w/intox tier truck driver: No Working smoke detector in home: Yes Fire extinguisher in home: Yes Carbon monox detector in home: Yes Firearms in home: No Do you feel safe at home: Yes Do you feel safe in your relationship?: Yes Exam Narrative Exam Narrative: GEN: awake, alert, oriented 3. Pleasant, well groomed, interactive. HEAD: Normocephalic, atraumatic ENT: Mucous membranes moist, oropharynx unremarkable, mild anterior cervical lymphadenopathy in the submandibular region TMs clear bilateral external ear exam unremarkable EYES: PERRL, EOMI NECK: Full ROM, no AUGUSTIN, no menigismus CHEST/RESP: Nontender, diminished bilaterally with faint end expiratory wheeze CARDIOVASCULAR: RRR, no murmur, rub hector. 2+ Rad pulse bilateral ABDOMEN: Soft, nontender, no mass. +Bowel sounds EXT: Full ROM, no edema, no rash Neuro: Grossly normal neurologic exam, conversant, interactive. Psych: Speech fluent, thoughts congruent, affect normal Course Vital Signs Vital signs: Vital Signs Temperature 36.8 C 07/16/20 21:36 Pulse 75 07/16/20 21:36 Respiratory Rate 16 07/16/20 21:36 Blood Pressure 147/78 H 07/16/20 21:36 Pulse Oximetry 97 07/16/20 21:36 Temperature 36.8 C 07/16/20 21:36 Temperature Source Temporal Artery Scan 07/16/20 21:36 Pulse 75 07/16/20 21:36 Respiratory Rate 16 07/16/20 21:36 Respiratory Effort 07/16/20 21:40 Respiratory Depth Normal 07/16/20 21:40 Blood Pressure 147/78 H 07/16/20 21:36 Blood Pressure Position Sitting 07/16/20 21:36 Pulse Oximetry 97 07/16/20 21:36 Oxygen Delivery Method Room Air 07/16/20 21:36 Oxygen Flow Rate 0 07/16/20 21:36
[2020-07-16] MEDS: Albuterol HFA 8 GM 60 PUFF INH IH (22:01)
[2020-07-16] MEDS: predniSONE 20 MG TAB 60 MG PO (22:01)
--- NOTE | 2020-07-16 23:26 | DI.VRAD_ITS ---
PROCEDURE INFORMATION: Exam: XR Chest Exam date and time: 07/16/2020 9:53 PM Age: 30 years old Clinical indication: Cough and other: Chest tighness; Patient HX: Cough and chest tightness TECHNIQUE: Imaging protocol: XR of the chest. Views: 2 views. COMPARISON: CR CHEST 2 VIEWS PA,LAT 07/19/2017 12:47 AM FINDINGS: Lungs: Mild diffuse peribronchial thickening, likely infectious and/or inflammatory in etiology. No pulmonary consolidation. Pleural spaces: Unremarkable. No pleural effusion. No pneumothorax. Heart/Mediastinum: No cardiomegaly. Bones/joints: No acute findings. IMPRESSION: Mild diffuse peribronchial thickening, likely infectious and/or inflammatory in etiology. No pulmonary consolidation. Dictated and Authenticated by: Ifrah Cameron MD. Ordering:KATHERIN Cesar MD
[2020-07-16] MEDS: Inhaler, Assist Device 1 EACH MC (23:31)
== END 2020-07-16 23:38 | disposition home or self-care (01) ==
PROVIDERS: Emergency Provider Emergency Medicine; PCP Nurse Practitioner
DX: J98.01 Acute bronchospasm (principal); F17.210 Nicotine dependence, cigarettes, uncomplicated; R59.0 Localized enlarged lymph nodes; Z03.818 Encounter for observation for suspected exposure to other biological agents ruled out
CPT/HCPCS: 99283; 71046; 99284; J7512

== ENCOUNTER 2021-03-12 17:27 | Outpatient (REF) | payer OTHER, SELFPAY ==
[2021-03-16 17:00] LABS: Codeine Negative ng/mL (Cutoff: 25); Dihydrocodeine Negative ng/mL (Cutoff: 25); Hydrocodone Negative ng/mL (Cutoff: 25); Hydromorphone Negative ng/mL (Cutoff: 25); Morphine Negative ng/mL (Cutoff: 25); Naloxone Negative ng/mL (Cutoff: 25); Norhydrocodone Negative ng/mL (Cutoff: 25); Noroxymorphone Negative ng/mL (Cutoff: 25); Opiates Interpretation Positive.
== END 2021-03-12 17:28 | disposition home or self-care (01) ==
LOC: LBN 17:27
PROVIDERS: PCP Nurse Practitioner; Visit Provider Nurse Practitioner
DX: F90.9 Attention-deficit hyperactivity disorder, unspecified type (principal)
CPT/HCPCS: 80361; 80362; 80365

== ENCOUNTER 2021-04-02 10:23 | Outpatient (REF) | payer OTHER, SELFPAY ==
[2021-04-05 14:25] LABS: 2-OH-Ethyl-Flurazepam Negative ng/mL (Cutoff: 10); 7-NH-Clonazepam Negative ng/mL (Cutoff: 10); 7-NH-Flunitrazepam Negative ng/mL (Cutoff: 10); Alpha OH-Alprazolam Negative ng/mL (Cutoff: 10); Alpha-OH Midazolam Negative ng/mL (Cutoff: 10); Alpha-OH-Triazolam Negative ng/mL (Cutoff: 10); Alprazolam Negative ng/mL (Cutoff: 10); Benzodiazepines Interpretation Positive.; Chlordiazepoxide Negative ng/mL (Cutoff: 10); Clobazam Negative ng/mL (Cutoff: 10); Clonazepam Negative ng/mL (Cutoff: 10); Diazepam Negative ng/mL (Cutoff: 10); Flurazepam Negative ng/mL (Cutoff: 10); Lorazepam Negative ng/mL (Cutoff: 10); Midazolam Negative ng/mL (Cutoff: 10); N-Desmethylclobazam Negative ng/mL (Cutoff: 10); Prazepam Negative ng/mL (Cutoff: 10); Temazepam 11 ng/mL (Cutoff: 10); Triazolam Negative ng/mL (Cutoff: 10); Zolpidem Carboxylic acid Negative ng/mL (Cutoff: 10)
== END 2021-04-02 10:24 | disposition home or self-care (01) ==
LOC: LBN 10:23
PROVIDERS: PCP Nurse Practitioner; Visit Provider Nurse Practitioner
DX: Z51.81 Encounter for therapeutic drug level monitoring (principal)
CPT/HCPCS: 80346

== ENCOUNTER 2021-05-13 13:18 | Outpatient (REF) | payer OTHER, SELFPAY | END 2021-05-13 13:19 | disposition home or self-care (01) | LOC: LBN 13:18 | PROVIDERS: PCP Nurse Practitioner; Visit Provider Nurse Practitioner Women's Health | DX: N61.1 Abscess of the breast and nipple (principal) | CPT/HCPCS: 87070; 87205 ==

== ENCOUNTER → 2021-06-24 04:02 | Outpatient (CLI) | payer SELFPAY | PROVIDERS: PCP Nurse Practitioner; Visit Provider Nurse Practitioner Women's Health ==

== ENCOUNTER 2021-11-11 15:27 | Emergency (ER) | payer SELFPAY ==
[2021-11-11 15:34] VITALS: BP 118/78; PULSE 73; RESP 18; TEMP 36.6; O2SAT 98
--- NOTE | 2021-11-11 16:15 | DI.RAD_ITS ---
Exam(s) XR WRIST LT COMPLETE EXAM: XR WRIST LT COMPLETE CLINICAL HISTORY: foosh, pain dist rad, heard pop. TECHNIQUE: 2D digital imaging was performed. COMPARISON: No exams were available for comparison FINDINGS: 3 views No evidence of fracture or dislocation. No significant ulnar variance. Bone density normal. No oss eous lesions. Scaphoid and scapholunate distance normal IMPRESSION: No significant findings. DATA REPOSITORY: RADIATION DOSE DELIVERED:
[2021-11-11] MEDS: Acetaminophen 500 MG TAB 1000 MG PO (17:03)
[2021-11-11] MEDS: Ibuprofen 800 MG TAB PO (17:03)
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
== END 2021-11-11 18:15 | disposition home or self-care (01) ==
PROVIDERS: Emergency Provider Student in an Organized Health Care Education/Training Program; PCP Nurse Practitioner
DX: S63.502A Unspecified sprain of left wrist, initial encounter (principal); F17.210 Nicotine dependence, cigarettes, uncomplicated; W19.XXXA Unspecified fall, initial encounter
CPT/HCPCS: 29130; 99283; 73110; 99282

== ENCOUNTER 2021-11-15 23:18 | Emergency (ER) | payer SELFPAY ==
[2021-11-15 23:26] VITALS: BP 150/89; PULSE 109; RESP 18; TEMP 36.8; O2SAT 100
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
[2021-11-15] MEDS: traMADol 50 MG TAB PO (23:49)
== END 2021-11-16 00:35 | disposition home or self-care (01) ==
PROVIDERS: Emergency Provider Registered Nurse Emergency; PCP Nurse Practitioner
DX: G89.11 Acute pain due to trauma (principal); M25.532 Pain in left wrist; F17.210 Nicotine dependence, cigarettes, uncomplicated; Y99.0 Civilian activity done for income or pay; W10.9XXA Fall (on) (from) unspecified stairs and steps, initial encounter
CPT/HCPCS: 99283

== ENCOUNTER 2022-04-10 12:47 | Emergency (ER) | payer SELFPAY ==
--- NOTE | 2022-04-10 12:45 | RT.EKG_ITS ---
APPROVED REPORT Exam: Resting ECG Reason for Exam: dizzy Patient Location: E HR:57 bpm ECG Measurements Heart Rate 57 AXIS MA 177 P 33 QRSd 94 QRS 5 QT 386 T 36 QTc 365 Conclusion Sinus bradycardia...rate< 60 Atrial premature complex...SV complex w/ short R-R interval
[2022-04-10 12:51] VITALS: BP 138/70; PULSE 52; RESP 18; TEMP 36.9; O2SAT 100
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
== END 2022-04-10 13:29 | disposition home or self-care (01) ==
PROVIDERS: Emergency Provider Physician Assistant; PCP Nurse Practitioner
DX: H66.91 Otitis media, unspecified, right ear (principal); R42 Dizziness and giddiness
CPT/HCPCS: 93005; 99283; 93010

== ENCOUNTER 2022-10-17 07:09 | Emergency (ER) | payer SELFPAY ==
[2022-10-17 07:14] VITALS: BP 128/68; PULSE 68; RESP 16; TEMP 36.6; O2SAT 100
--- NOTE | 2022-10-17 07:45 | DI.CT_ITS ---
Exam(s) CT ABDOMEN PELVIS W EXAM: CT ABDOMEN PELVIS W CLINICAL HISTORY: abd pain, nausea vomiting. TECHNIQUE: Imaging Protocol: Axial computed tomography images with coronal and sagittal reformatted images were created and reviewed CONTRAST MATERIAL: Intravenous: Omnipaque-350 100cc Oral: None COMPARISON: CT RENAL COLIC WO CONTRAST from 12/03/2012 FINDINGS: VISUALIZED LUNG BASES: No nodules nor pleural effusions evident. ABDOMEN: There is no ascites. LIVER: There are no focal hepatic lesions evident. No dilated intrahepatic ducts. GALLBLADDER/BILIARY: No obvious gallbladder pathology. CBD is not dilated. PANCREAS: No evidence of pancreatic mass nor dilatation of the pancreatic duct. SPLEEN: Spleen is not enlarged. No obvious intrasplenic lesions. Splenic and portal veins are paten t. ADRENALS: There are no significant adrenal masses. KIDNEYS:Small benign cyst in the lateral aspect of the inferior pole the left kidney noted. This brooks sures 8 mm x 8 mm does not require further imaging follow-up. No solid renal masses. No calculi nor hydronephrosis.. ABDOMINAL AORTA: Abdominal aorta is not enlarged. LYMPH NODES:There is no retroperitoneal nor paraaortic adenopathy. ABDOMINAL WALL: No evidence of significant anterior abdominal wall nor inguinal hernia. GI: There diverticuli in left side of the colon. The level the left iliac crest there is some mild s treaking in the fat adjacent to the lateral wall of the colon at this level. Consistent with inflamm atory process. No free fluid nor abscess at this time. PELVIS: GI: No evidence of appendicitis. Also as above LYMPH NODES: There is no intrapelvic nor inguinal adenopathy. REPRODUCTIVE: There is an IUD in satisfactory position in the endometrial canal. Ovaries appear age- appropriate. URINARY BLADDER: No calculi nor obvious masses evident OSSEOUS: No fractures and no significant osseous lesions. IMPRESSION: 1. There is some mild inflammatory streaking in the fat adjacent to the lateral aspect of the left si de of the colon at the junction of the descending-left colon and sigmoid at the iliac crest level. P ossibly an element of diverticulitis. There is no abscess. No free air. 2. No evidence of appendicitis. 3. IUD in satisfactory position in the endometrial canal. Called by myself to ER physician RADIATION DOSE DELIVERED: 1,241.55mGy.cm Total DLP DATA REPOSITORY: All CT scans at this facility are submitted to the National Radiology Data Registry (NRDR) Dose Index Registry (DIR) with the [employer] (A[employer]). RADIATION OPTIMIZATION: All CT scans at this facility use at least one of these dose optimization te chniques: automated exposure control; mA and/or kV adjustment per patient size (includes targeted exa ms where dose is matched to clinical indication); or iterative reconstruction.
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
[2022-10-17] MEDS: LORazepam 2 MG/ML VIAL 0.5 MG IVP (08:27)
[2022-10-17] MEDS: Ondansetron 4 MG/2 ML VIAL IVP (08:28)
[2022-10-17] MEDS: Normal Saline 1,000 ML 1000 ML IV (08:28)
[2022-10-17 08:43] LABS: Bilirubin Negative (Negative); Blood Negative (Negative); Clarity Clear (Clear); Glucose Negative (Negative); Ketones Negative (Negative); Leukocyte Esterase Negative (Negative); Nitrite Negative (Negative); Urobilinogen 0.2 mg/dL (Up to 0.2); pH 5.5 (5-8)
[2022-10-17 08:43] LABS: Abs Immature Grans 0.02 10^3/uL (0.0-0.06); Absolute Basophil Count 0.08 10^3/uL (0.0-0.2); Absolute Eosinophil Count 0.22 10^3/uL (0.0-0.7); Absolute Lymphocyte Count 2.95 10^3/uL (1.2-3.4); Absolute Monocyte Count 0.73 10^3/uL (0.1-0.8); Absolute Neutrophil Count 4.96 10^3/uL (1.2-6.7); Basophils % 0.9; Eosinophils % 2.5; HCT 40.7 % (36.0-46.0); HGB 13.7 g/dL (11.2-15.7); Immature Grans % 0.2; Lymphocytes % 32.9; MCH 30.7 pg (27.0-33.0); MCHC 33.7 % (32.0-36.0); MCV 91 fL (80-95); MPV 10.8 fL (8.0-11.0); Monocytes % 8.1; Neutrophils % 55.4; Platelet Count 239 10^3/uL (130-400); RBC 4.46 10^6/uL (3.93-5.22); RDW 12.7 % (11.7-14.6); RDW-SD 42.3 fL; WBC 8.96 10^3/uL (4.4-10.8)
[2022-10-17 09:24] VITALS: RESP 16
[2022-10-17] MEDS: Omnipaque 350 MG/ML 500 ML BTL-Imaging package IJ (09:32)
[2022-10-17] MEDS: Normal Saline - Diluent 50 ML VIAL IJ (09:32)
[2022-10-17 09:33] LABS: COVID-19 PCR Negative (Negative); Influenza A PCR Negative (Negative); Influenza B PCR Negative (Negative); RSV PCR Negative (Negative)
[2022-10-17] MEDS: Normal Saline Flush 10 ML SYR IVP (09:33)
[2022-10-17 09:34] LABS: Source Nasopharynx
[2022-10-17 10:10] LABS: ALT 19 U/L (14-59); AST 13 U/L (15-37); Albumin 3.7 g/dL (3.4-5.0); Alkaline Phosphatase 77 U/L (46-116); BUN 8 mg/dL (7-18); Bilirubin, Total 1.4 mg/dL (0.2-1.0); CREATININE 0.8 mg/dL (0.55-1.02); Calcium 8.8 mg/dL (8.5-10.1); Chloride 110 mmol/L (98-107); Estimated GFR 99.71 (mL/min/1.73m2); Glucose 104 mg/dL (74-106); Lipase 28 U/L (16-77); Potassium 3.5 mmol/L (3.5-5.1); Sodium 146 mmol/L (136-145); Total Protein 7.2 g/dL (6.4-8.2)
== END 2022-10-17 10:49 | disposition home or self-care (01) ==
PROVIDERS: Emergency Provider Emergency Medicine; PCP Nurse Practitioner
DX: R10.9 Unspecified abdominal pain (principal); R11.2 Nausea with vomiting, unspecified
CPT/HCPCS: 36415; 80053; 81025; 83690; 87637; 96361; 96374; 96375; 99285; 74177; 81003; 85025; 99284; J2060; J2405

== ENCOUNTER 2023-05-20 08:03 | Emergency (ER) | payer SELFPAY ==
[2023-05-20 08:12] VITALS: BP 162/91; PULSE 89; RESP 20; TEMP 36.7; O2SAT 98
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
--- NOTE | 2023-05-20 08:30 | DI.CT_ITS ---
Exam(s) CT ABDOMEN PELVIS W EXAM: CT ABDOMEN PELVIS W CLINICAL HISTORY: LUQ abd pain, N/V. TECHNIQUE: Imaging Protocol: Axial computed tomography images with coronal and sagittal reformatted images were created and reviewed CONTRAST MATERIAL: Intravenous: Omnipaque 350 Contrast volume:100 ml Oral: no COMPARISON: CT CT ABDOMEN PELVIS W from 10/17/2022 FINDINGS: ABDOMEN and PELVIS: Lung Bases: No acute findings. Liver: Normal density. No measurable mass. Gallbladder and biliary tract: No radiodense calculus or dilation. Pancreas: Normal density. No abnormal calcifications or inflammatory process. No evidence of mass. Spleen: Normal. Kidneys: Normal size, contour and axis. No radiodense stones. No obstructive uropathy. No suspicious masses seen. Adrenal glands: No masses seen. Vasculature: Abdominal aorta non-dilated. Soft tissues: Unremarkable. Bladder: No gross wall thickening. No calculi.No focal mass. Bowel: Mild diverticulosis lower descending colon. Very little stool. No obstruction. No bowel wall thickening. Appendix normal. Peritoneal cavity: No ascites. No focal collection or mesenteric inflammatory response. Bones: Unremarkable for age. Reproductive organs: IUD within endometrium. Lymph nodes: Unremarkable. IMPRESSION:: No acute abnormality in the abdomen or pelvis. RADIATION DOSE DELIVERED: Total DLP DATA REPOSITORY: All CT scans at this facility are submitted to the National Radiology Data Registry (NRDR) Dose Index Registry (DIR) with the [employer] (A[employer]). RADIATION OPTIMIZATION: All CT scans at this facility use at least one of these dose optimization te chniques: automated exposure control; mA and/or kV adjustment per patient size (includes targeted exa ms where dose is matched to clinical indication); or iterative reconstruction.
[2023-05-20] MEDS: Normal Saline 1,000 ML 1000 ML IV (08:37)
[2023-05-20] MEDS: Ondansetron 4 MG/2 ML VIAL IVP (08:37)
[2023-05-20 08:51] LABS: Abs Immature Grans 0.02 10^3/uL (0.0-0.06); Absolute Basophil Count 0.07 10^3/uL (0.0-0.2); Absolute Eosinophil Count 0.14 10^3/uL (0.0-0.7); Absolute Lymphocyte Count 2.46 10^3/uL (1.2-3.4); Absolute Monocyte Count 0.63 10^3/uL (0.1-0.8); Absolute Neutrophil Count 4.88 10^3/uL (1.2-6.7); Basophils % 0.9; Eosinophils % 1.7; HCT 42.6 % (36.0-46.0); HGB 14.1 g/dL (11.2-15.7); Immature Grans % 0.2; MCH 30.6 pg (27.0-33.0); MCHC 33.1 % (32.0-36.0); MCV 92 fL (80-95); MPV 10.5 fL (8.0-11.0); Monocytes % 7.7; Neutrophils % 59.5; Platelet Count 224 10^3/uL (130-400); RBC 4.61 10^6/uL (3.93-5.22); RDW 12.8 % (11.7-14.6); RDW-SD 43.2 fL
[2023-05-20 08:52] LABS: Bilirubin Negative (Negative); Blood Negative (Negative); Clarity Clear (Clear); Glucose Negative (Negative); Ketones Negative (Negative); Leukocyte Esterase Negative (Negative); Nitrite Negative (Negative); Specific Gravity >= 1.030 (1.005-1.025); Urobilinogen 0.2 mg/dL (Up to 0.2); pH 5.5 (5-8)
[2023-05-20] MEDS: Normal Saline - Diluent 50 ML VIAL IJ (08:58)
[2023-05-20] MEDS: Omnipaque 350 MG/ML 100 ML BTL IJ (08:58)
[2023-05-20] MEDS: Normal Saline Flush 10 ML SYR IVP (09:13)
[2023-05-20] MEDS: MORPHine 10 MG/ML VIAL 2 MG IVP (09:26)
[2023-05-20 09:32] LABS: ALT 29 U/L (14-59); AST 15 U/L (15-37); Albumin 3.9 g/dL (3.4-5.0); Alkaline Phosphatase 77 U/L (46-116); Anion Gap 10.4 mmol/L (3-11); BUN 13 mg/dL (7-18); Bilirubin, Total 1.6 mg/dL (0.2-1.0); CO2 26.6 mmol/L (21.0-32.0); CREATININE 0.8 mg/dL (0.55-1.02); Calcium 8.7 mg/dL (8.5-10.1); Chloride 106 mmol/L (98-107); Estimated GFR 99.09 (mL/min/1.73m2); Glucose 104 mg/dL (74-106); Lipase 25 U/L (16-77); Magnesium 1.7 mg/dL (1.8-2.4); Potassium 3.2 mmol/L (3.5-5.1); Sodium 143 mmol/L (136-145); Total Protein 7.4 g/dL (6.4-8.2)
[2023-05-20 09:38] VITALS: BP 145/78; PULSE 89; RESP 16; O2SAT 98
[2023-05-20] MEDS: Magnesium Oxide 400 MG TAB PO (09:47)
[2023-05-20] MEDS: Lidocaine 2% Viscous 15 ML CUP PO (09:48)
[2023-05-20] MEDS: Mylanta Suspension 30 ML CUP PO (09:48)
[2023-05-20] MEDS: FAMOTIDINE 20 MG in Normal Saline 100 ML 400 MG IVPB (09:48)
[2023-05-20 10:36] VITALS: BP 140/86; PULSE 77; RESP 18; TEMP 36.8; O2SAT 97
== END 2023-05-20 10:36 | disposition home or self-care (01) ==
PROVIDERS: Emergency Provider Registered Nurse Emergency; PCP Nurse Practitioner
DX: R10.12 Left upper quadrant pain (principal); R11.2 Nausea with vomiting, unspecified; E83.42 Hypomagnesemia; Z87.891 Personal history of nicotine dependence
CPT/HCPCS: 80053; 83690; 96361; 96374; 96375; 99285; 74177; 81003; 83735; 85025; 99284; J2270; J2405; J3490

== ENCOUNTER 2024-01-14 19:52 | Emergency (ER) | payer SELFPAY ==
[2024-01-14 19:55] VITALS: BP 160/100; PULSE 91; RESP 20; TEMP 37.2; O2SAT 97
[2024-01-14 20:16] VITALS: BP 115/55
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
[2024-01-14 20:42] LABS: COVID-19 PCR Negative (Negative); Influenza A PCR Negative (Negative); Influenza B PCR Negative (Negative); RSV PCR Negative (Negative)
[2024-01-14 20:44] LABS: Source Nasopharynx
[2024-01-14] MEDS: Albuterol HFA 8 GM 60 PUFF INH IH (21:08)
[2024-01-14] MEDS: Dexamethasone 4 MG TAB 8 MG PO (21:08)
[2024-01-14] MEDS: Inhaler, Assist Device 1 EACH MC (21:08)
--- NOTE | 2024-01-14 21:13 | DI.RAD_ITS ---
Exam(s) XR CHEST 2V PA LATERAL EXAM: XR CHEST 2V PA LATERAL CLINICAL HISTORY: cough TECHNIQUE: 2D digital imaging was performed. Two views. COMPARISON: CR CHEST 2 VIEWS PA,LAT from 07/18/2017 CR,XR XR CHEST 2V PA LATERAL from 07/16/2020 FINDINGS: HEART: Normal size. Aorta: Not dilated. PULMONARY VASCULATURE: Normal. MEDIASTINUM: Unremarkable. LUNGS: Clear. PLEURAL SPACE: No pleural effusion or pneumothorax. BONE:Unremarkable for age. SOFT TISSUES: Unremarkable. IMPRESSION: No acute abnormality. DATA REPOSITORY: RADIATION DOSE DELIVERED:
[2024-01-14] MEDS: Azithromycin 250 MG TAB 500 MG PO (21:17)
[2024-01-14 21:23] VITALS: BP 123/45; PULSE 71; O2SAT 98
--- NOTE | 2024-01-14 22:47 | DI.VRAD_ITS ---
PROCEDURE INFORMATION: Exam: XR Chest Exam date and time: 01/14/2024 9:13 PM Age: 33 years old Clinical indication: Cough TECHNIQUE: Imaging protocol: Radiologic exam of the chest. Views: 2 views. COMPARISON: CR XR CHEST 2V PA LATERAL 16/07/2020 22:08 FINDINGS: Lungs: Subtle perihilar interstitial coarsening. Pleural spaces: No pleural effusion or pneumothorax. Heart/Mediastinum: Normal in size. Bones/joints: No acute fracture is identified. IMPRESSION: Subtle perihilar interstitial coarsening. Consider infectious pneumonitis. An inflammatory process such as hypersensitivity pneumonitis may present a similar picture. Dictated and Authenticated by: Osmany Lr MD. Ordering:ROBI Martin MD
== END 2024-01-14 21:23 | disposition home or self-care (01) ==
PROVIDERS: Emergency Provider Emergency Medicine; PCP Nurse Practitioner
DX: J18.9 Pneumonia, unspecified organism (principal)
CPT/HCPCS: 87637; 87880; 99284; 71046; 87081; J8540

== ENCOUNTER 2024-01-31 06:20 | Emergency (ER) | payer SELFPAY ==
--- NOTE | 2024-01-31 06:15 | DI.RAD_ITS ---
Exam(s) XR SHOULDER LT COMPLETE 2+V EXAM: XR SHOULDER LT COMPLETE 2+V CLINICAL HISTORY: fall. TECHNIQUE: 2D digital imaging was performed of the left shoulder. Five images were obtained. AP, G rashey, Y-view and axillary views were obtained. COMPARISON: No exams were available for comparison FINDINGS: BONES: No acute fracture is present. No bony destructive lesion is seen. JOINTS: No dislocation present. The glenohumeral and acromioclavicular joints are well maintained. SOFT TISSUE: Normal. IMPRESSION: No acute fracture or dislocation. DATA REPOSITORY: RADIATION DOSE DELIVERED:
--- NOTE | 2024-01-31 06:15 | DI.RAD_ITS ---
Exam(s) XR ELBOW LT COMPLETE EXAM: XR ELBOW LT COMPLETE CLINICAL HISTORY: fall. TECHNIQUE: 2D digital imaging was performed of the left elbow. Three images were obtained. AP, lat eral and oblique views were obtained. COMPARISON: CR RIGHT ELBOW COMPLETE from 08/07/2015 CR LEFT ELBOW COMPLETE from 04/25/2016 CR LEFT WRIST COMPLETE from 04/25/2016 FINDINGS: BONES: No acute fracture is present. No bony destructive lesion is seen. JOINTS: The elbow is normally aligned. No joint effusion is seen. SOFT TISSUE: Normal. IMPRESSION: Unremarkable radiographs of the left elbow. DATA REPOSITORY: RADIATION DOSE DELIVERED:
[2024-01-31 06:21] VITALS: BP 129/75; PULSE 70; RESP 18; O2SAT 100
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
[2024-01-31] MEDS: Ibuprofen 600 MG TAB PO (07:12)
[2024-01-31] MEDS: Acetaminophen 500 MG TAB 1000 MG PO (07:12)
[2024-01-31 07:25] VITALS: BP 107/65; PULSE 67; RESP 18; O2SAT 99
--- NOTE | 2024-01-31 07:27 | DI.VRAD_ITS ---
PROCEDURE INFORMATION: Exam: XR Left Elbow Exam date and time: 01/31/2024 6:47 AM Age: 34 years old Clinical indication: Pain; Elbow; Left; Patient HX: Fall TECHNIQUE: Imaging protocol: Radiologic exam of the left elbow. Views: 3 or more views. COMPARISON: CR XR SHOULDER LT COMPLETE 2+V 01/31/2024 6:43 AM FINDINGS: Bones/joints: No acute fracture or dislocation. Soft tissues: Normal. IMPRESSION: No acute findings. Dictated and Authenticated by: Leroy Gar MD. Ordering:IFEOMA Shafer MD
--- NOTE | 2024-01-31 07:28 | DI.VRAD_ITS ---
PROCEDURE INFORMATION: Exam: XR Left Shoulder Exam date and time: 01/31/2024 6:43 AM Age: 34 years old Clinical indication: Pain; Shoulder; Left; Patient HX: Fall TECHNIQUE: Imaging protocol: Radiologic exam of the left shoulder. Views: 2 or more views. COMPARISON: CR XR CHEST 2V PA LATERAL 01/14/2024 9:13 PM FINDINGS: Bones/joints: Normal. Soft tissues: Normal. IMPRESSION: No acute findings. Dictated and Authenticated by: Leroy Gar MD. Ordering:IFEOMA Shafer MD
== END 2024-01-31 07:09 | disposition home or self-care (01) ==
PROVIDERS: Emergency Provider Emergency Medicine; PCP Nurse Practitioner
DX: S50.02XA Contusion of left elbow, initial encounter (principal); M25.512 Pain in left shoulder; F17.210 Nicotine dependence, cigarettes, uncomplicated; F17.290 Nicotine dependence, other tobacco product, uncomplicated; W00.0XXA Fall on same level due to ice and snow, initial encounter; Y93.01 Activity, walking, marching and hiking; Y92.481 Parking lot as the place of occurrence of the external cause
CPT/HCPCS: 99283; 73030; 73080

== ENCOUNTER 2024-02-03 07:54 | Emergency (ER) | payer MEDICAID, SELFPAY ==
[2024-02-03 07:58] VITALS: BP 114/96; PULSE 80; RESP 18; TEMP 37.9; O2SAT 99
--- NOTE | 2024-02-03 08:36 | DI.RAD_ITS ---
Exam(s) XR CHEST 2V PA LATERAL EXAM: XR CHEST 2V PA LATERAL CLINICAL HISTORY: chest pain, sob, coughx 3 weeks, fever TECHNIQUE: 2D digital imaging was performed. Two views. COMPARISON: No exams were available for comparison FINDINGS: HEART: Normal size. Aorta: Not dilated. PULMONARY VASCULATURE: Normal. MEDIASTINUM: Unremarkable. LUNGS: Clear. PLEURAL SPACE: No pleural effusion or pneumothorax. BONE:Unremarkable for age. SOFT TISSUES: Unremarkable. IMPRESSION: No acute abnormality. DATA REPOSITORY: RADIATION DOSE DELIVERED:
[2024-02-03] MEDS: Acetaminophen 325 MG TAB 650 MG PO (08:50)
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
[2024-02-03] MEDS: predniSONE 20 MG TAB 40 MG PO (09:16)
[2024-02-03 09:21] VITALS: BP 129/94; PULSE 70; RESP 15; TEMP 36.5; O2SAT 99
--- NOTE | 2024-02-03 09:26 | NUR.NOTE ---
Faxed a Prior Authorization to [facility] as Pt's Primary Care Provider is listed as Sara Pagan
== END 2024-02-03 09:22 | disposition home or self-care (01) ==
PROVIDERS: Emergency Provider Physician Assistant; PCP Nurse Practitioner
DX: J40 Bronchitis, not specified as acute or chronic (principal)
CPT/HCPCS: 71046; J7512

== ENCOUNTER 2024-04-23 14:35 | Emergency (ER) | payer SELFPAY ==
[2024-04-23] VITALS (9 sets, daily range): BP systolic 109; BP diastolic 70; PULSE 78–102; RESP 15–20; TEMP 36.4; O2SAT 96–100
[2024-04-23] MEDS: Albuterol/Ipratropium 3 ML UPD VIAL UPD ×3 (14:56→15:01)
[2024-04-23] MEDS: predniSONE 20 MG TAB 60 MG PO (15:01)
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
[2024-04-23] MEDS: Albuterol HFA 8 GM 60 PUFF INH IH (15:37)
[2024-04-23] MEDS: Inhaler, Assist Device 1 EACH MC (15:38)
== END 2024-04-23 15:44 | disposition home or self-care (01) ==
PROVIDERS: Emergency Provider Emergency Medicine; PCP Nurse Practitioner
DX: J45.901 Unspecified asthma with (acute) exacerbation (principal)
CPT/HCPCS: 94640; 99285; 99283; J7512; J7620

== ENCOUNTER 2024-05-02 03:32 | Emergency (ER) | payer SELFPAY ==
--- NOTE | 2024-05-02 03:30 | DI.RAD_ITS ---
Exam(s) XR PORTABLE CHEST AP EXAM: XR PORTABLE CHEST AP CLINICAL HISTORY: cough, asthma, sob. TECHNIQUE: 2D digital imaging was performed. COMPARISON: No exams were available for comparison FINDINGS: Single AP portable view. Heart size is upper normal. The mediastinum is not widened. Lungs are clear. No infiltrates nor obvious pleural effusions. IMPRESSION: No acute pulmonary findings on this single AP portable view of the chest. DATA REPOSITORY: RADIATION DOSE DELIVERED:
[2024-05-02 03:34] VITALS: BP 153/91; PULSE 93; RESP 26; TEMP 36.2; O2SAT 99
[2024-05-02] MEDS: Albuterol/Ipratropium 3 ML UPD VIAL 6 ML UPD (03:38)
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
[2024-05-02] MEDS: Loratidine 10 MG TAB PO (03:41)
[2024-05-02 04:19] LABS: COVID-19 PCR Negative (Negative); Influenza A PCR Negative (Negative); Influenza B PCR Negative (Negative); RSV PCR Negative (Negative)
[2024-05-02 04:26] LABS: Source Nasopharynx
--- NOTE | 2024-05-02 04:30 | DI.VRAD_ITS ---
PROCEDURE INFORMATION: Exam: XR Chest Exam date and time: 05/02/2024 4:21 AM Age: 34 years old Clinical indication: Cough and shortness of breath; Cough, asthma, SOB TECHNIQUE: Imaging protocol: Radiologic exam of the chest. Views: 1 view. COMPARISON: CR XR CHEST 2V PA LATERAL 02/03/2024 8:25 AM FINDINGS: Lungs: Unremarkable. No consolidation. Pleural spaces: Unremarkable. No pleural effusion. No pneumothorax. Heart/Mediastinum: Unremarkable. No cardiomegaly. Bones/joints: Unremarkable. IMPRESSION: No acute findings. Dictated and Authenticated by: Vikas Carpenter MD. Orderin Pura Call MD
[2024-05-02 04:57] VITALS: BP 122/52; PULSE 82; O2SAT 100
[2024-05-02] MEDS: Albuterol HFA 8 GM 60 PUFF INH IH (05:17)
[2024-05-02] MEDS: Budesonide/Formoterol 160/4.5 6 GM 60 PUFF INH IH (05:18)
[2024-05-02 05:23] VITALS: BP 140/66; PULSE 88; RESP 20; TEMP 36.6; O2SAT 98
== END 2024-05-02 05:23 | disposition home or self-care (01) ==
PROVIDERS: Emergency Provider Student in an Organized Health Care Education/Training Program; PCP Nurse Practitioner
DX: J06.9 Acute upper respiratory infection, unspecified (principal); J45.909 Unspecified asthma, uncomplicated; F17.290 Nicotine dependence, other tobacco product, uncomplicated
CPT/HCPCS: 87637; 94640; 99283; 71045; J7620

== ENCOUNTER 2024-06-18 15:00 | Emergency (ER) | payer MEDICAID, SELFPAY ==
[2024-06-18] VITALS (11 sets, daily range): BP systolic 118–150; BP diastolic 54–86; PULSE 77–108; RESP 15–25; TEMP 36.6; O2SAT 94–100
--- NOTE | 2024-06-18 15:00 | DI.RAD_ITS ---
Exam(s) XR PORTABLE CHEST AP EXAM: XR PORTABLE CHEST AP CLINICAL HISTORY: SOB, cough. TECHNIQUE: 2D digital imaging was performed. COMPARISON: CR XR CHEST 2V PA LATERAL from 02/03/2024 CR,XR XR PORTABLE CHEST AP from 05/02/2024 FINDINGS: Single AP portable view. Heart size is upper normal. The mediastinum is not widened. Lungs are clear. No infiltrates nor obvious pleural effusions. IMPRESSION: No acute pulmonary findings on this single AP portable view of the chest. DATA REPOSITORY: RADIATION DOSE DELIVERED:
[2024-06-18] MEDS: methylPREDNISolone SUCC 125 MG VIAL IVP (15:20)
[2024-06-18] MEDS: Albuterol/Ipratropium 3 ML UPD VIAL UPD (15:21)
[2024-06-18] MEDS: Albuterol 2.5 MG/3 ML INH SOLN VIAL UPD ×2 (15:21)
[2024-06-18 15:57] LABS: COVID-19 PCR Negative (Negative); Influenza A PCR Negative (Negative); Influenza B PCR Negative (Negative); RSV PCR Negative (Negative)
[2024-06-18 16:02] LABS: Source Nasopharynx
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
[2024-06-18] MEDS: Albuterol HFA 8 GM 60 PUFF INH IH (17:46)
[2024-06-18] MEDS: Dexamethasone 4 MG TAB 10 MG PO ×2 (17:47→17:57)
== END 2024-06-18 18:44 | disposition home or self-care (01) ==
LOC: ER 17:51
PROVIDERS: Emergency Provider Student in an Organized Health Care Education/Training Program; PCP Nurse Practitioner
DX: J45.901 Unspecified asthma with (acute) exacerbation (principal); F17.290 Nicotine dependence, other tobacco product, uncomplicated
CPT/HCPCS: 87637; 94640; 96374; 99284; 71045; 99283; J2919; J7613; J7620; J8540

== ENCOUNTER 2024-07-09 20:38 | Emergency (ER) | payer OTHER, MEDICAID, SELFPAY ==
[2024-07-09] VITALS (36 sets, daily range): BP systolic 125; BP diastolic 84; PULSE 78–108; RESP 13–30; TEMP 36.7; O2SAT 94–99
--- NOTE | 2024-07-09 20:45 | RT.EKG_ITS ---
APPROVED REPORT Exam: Resting ECG Reason for Exam: SOB Patient Location: E HR:93 bpm ECG Measurements Heart Rate 93 AXIS TN 159 P 73 QRSd 97 QRS 4 QT 350 T 50 QTc 435 Conclusion Sinus rhythm 93 normal axis no stemi
[2024-07-09] MEDS: Albuterol/Ipratropium 3 ML UPD VIAL 9 ML UPD (21:05)
[2024-07-09] MEDS: predniSONE 20 MG TAB 60 MG PO (21:05)
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
[2024-07-09 21:46] LABS: BE (Venous) -1 mmol/L (-2-3); HCO3 (Venous) 24 mmol/L (23-28); O2 Sat (Venous) 56 %; TCO2 (Venous) 22 mmol/L (24-29); pCO2 (Venous) 41 mmHg (41-51); pH (Venous) 7.39 (7.31-7.41); pO2 (Venous) 30 mmHg
[2024-07-09 21:48] LABS: Abs Immature Grans 0.02 10^3/uL (0.0-0.06); Absolute Basophil Count 0.09 10^3/uL (0.0-0.2); Absolute Eosinophil Count 1.16 10^3/uL (0.0-0.7); Absolute Neutrophil Count 3.69 10^3/uL (1.2-6.7); Basophils % 0.9 %; Eosinophils % 11.8 %; HCT 39.6 % (36.0-46.0); HGB 13.2 g/dL (11.2-15.7); Immature Grans % 0.2 %; Lymphocytes % 40.6 %; MCH 30.4 pg (27.0-33.0); MCHC 33.3 % (32.0-36.0); MCV 91 fL (80-95); MPV 9.8 fL (8.0-11.0); Monocytes % 9.1 %; Neutrophils % 37.4 %; Platelet Count 242 10^3/uL (130-400); RBC 4.34 10^6/uL (3.93-5.22); RDW 12.9 % (11.7-14.6); RDW-SD 43.3 fL; WBC 9.86 10^3/uL (4.4-10.8)
[2024-07-09 22:03] LABS: ALT 23 U/L (14-59); AST 17 U/L (15-37); Albumin 3.5 g/dL (3.4-5.0); Alkaline Phosphatase 80 U/L (46-116); Anion Gap 7.4 mmol/L (3-11); BUN 20 mg/dL (7-18); Bilirubin, Total 0.6 mg/dL (0.2-1.0); CO2 25.6 mmol/L (21.0-32.0); CREATININE 1.1 mg/dL (0.55-1.02); Calcium 9.1 mg/dL (8.5-10.1); Chloride 107 mmol/L (98-107); Glucose 95 mg/dL (74-106); Magnesium 1.7 mg/dL (1.8-2.4); Potassium 3.6 mmol/L (3.5-5.1); Sodium 140 mmol/L (136-145); Total Protein 7.1 g/dL (6.4-8.2)
[2024-07-09 22:06] LABS: Troponin I 4 ng/L (<or=51)
[2024-07-09] MEDS: Benzonatate 100 MG CAP PO (22:19)
[2024-07-09] MEDS: Magnesium Oxide 400 MG TAB PO (22:19)
[2024-07-09] MEDS: Normal Saline 500 ML 1000 ML IV (22:19)
[2024-07-09] MEDS: Pantoprazole 20 MG TABCR PO (22:27)
[2024-07-09] MEDS: Budesonide/Formoterol 160/4.5 6 GM 60 PUFF INH IH (22:27)
[2024-07-09] MEDS: Albuterol HFA 8 GM 60 PUFF INH IH (22:27)
[2024-07-09 23:20] LABS: COVID-19 PCR Negative (Negative); Influenza A PCR Negative (Negative); Influenza B PCR Negative (Negative); RSV PCR Negative (Negative)
[2024-07-09 23:29] LABS: Source Nasopharynx
== END 2024-07-09 22:55 | disposition home or self-care (01) ==
PROVIDERS: Emergency Provider Nurse Practitioner Family; PCP Nurse Practitioner
DX: R07.1 Chest pain on breathing; F17.290 Nicotine dependence, other tobacco product, uncomplicated; R06.02 Shortness of breath; R05.1 Acute cough; R06.2 Wheezing
CPT/HCPCS: 99284 ×2; 94640; 80053; 82805; 87637; 93005; 83735; 84484; 85025; 93010; J7512; J7620

== ENCOUNTER 2024-09-06 03:22 | Outpatient (CLI) | payer OTHER, SELFPAY ==
[2024-09-06] MEDS: Levalbuterol HFA 15 GM INH 4 PUFF IH (09:09)
[2024-09-06] MEDS: Inhaler, Assist Device 1 EACH MC (09:09)
--- NOTE | 2024-09-26 09:20 | W.PFT ---
Date of service: 09/06/24 Time of Service: 08:01 Pulmonary Function Test Result Indications: Asthma Impression 1. Good patient effort was noted. ATS standards for reproducibility were met. 2. Spirometry showed moderate obstructive lung disease with an FEV1 of 74% (2.44 L) 3. Following the administration of a bronchodilator there was a significant response 4. TLC is normal. No evidence of restrictive lung disease 5. DLCO was normal
== END 2024-09-06 03:23 | disposition home or self-care (01) ==
LOC: RT 03:22
PROVIDERS: PCP Nurse Practitioner; Referring Provider Physician Assistant Surgical; Visit Provider Internal Medicine Pulmonary Disease
DX: J45.909 Unspecified asthma, uncomplicated (principal)
CPT/HCPCS: 94060; 94726; 94729

== ENCOUNTER 2024-11-11 00:26 | Emergency (ER) | payer OTHER, SELFPAY ==
[2024-11-11] VITALS (14 sets, daily range): BP systolic 114–164; BP diastolic 56–119; PULSE 67–94; RESP 18–20; TEMP 36.9; O2SAT 94–100
--- NOTE | 2024-11-11 00:15 | RT.EKG_ITS ---
APPROVED REPORT Exam: Resting ECG Reason for Exam: sob Patient Location: E HR:92 bpm ECG Measurements Heart Rate 92 AXIS IL [id number] P [id number] QRSd 101 QRS -11 QT 371 T 1 QTc 466 Conclusion Atrial flutter with predominant 2:1 AV block...A-rate 203, multiple Ps sinus. wandering baseline, repeat requested
--- NOTE | 2024-11-11 00:30 | RT.EKG_ITS ---
APPROVED REPORT Exam: Resting ECG Reason for Exam: chest pain Patient Location: E HR:85 bpm ECG Measurements Heart Rate 85 AXIS MT 163 P 59 QRSd 99 QRS -12 QT 378 T 20 QTc 449 Conclusion Sinus rhythm...normal P axis, V-rate 60- [address] segment or T wave abnormalitites to suggest occlusive TN
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
[2024-11-11] MEDS: LORazepam 0.5 MG TAB PO (00:41)
[2024-11-11] MEDS: Albuterol 2.5 MG/3 ML INH SOLN VIAL UPD (00:43)
[2024-11-11] MEDS: MYLANTA 30 ML, LIDOCAINE 2% VISCOUS UD 15 ML PO (00:43)
[2024-11-11] MEDS: ACETAMINOPHEN 1,000 MG/100 ML BAG 400 MG IVPB (00:45)
[2024-11-11] MEDS: Aspirin 81 MG CHEW 324 MG CH (00:48)
[2024-11-11 00:49] LABS: BE (Venous) -4 mmol/L (-2-3); HCO3 (Venous) 21 mmol/L (23-28); O2 Sat (Venous) 83 %; TCO2 (Venous) 19 mmol/L (24-29); pCO2 (Venous) 36 mmHg (41-51); pO2 (Venous) 46 mmHg
[2024-11-11 00:53] LABS: Abs Immature Grans 0.03 10^3/uL (0.0-0.06); HCT 39.9 % (36.0-46.0); HGB 13.4 g/dL (11.2-15.7); Immature Grans % 0.2 %; MCH 29.8 pg (27.0-33.0); MCHC 33.6 % (32.0-36.0); MCV 89 fL (80-95); MPV 10.2 fL (8.0-11.0); Platelet Count 238 10^3/uL (130-400); RBC 4.49 10^6/uL (3.93-5.22); RDW 12.7 % (11.7-14.6); RDW-SD 41.4 fL; WBC 12.45 10^3/uL (4.4-10.8)
--- NOTE | 2024-11-11 01:07 | DI.RAD_ITS ---
Exam(s) XR CHEST 2V PA LATERAL EXAM: XR CHEST 2V PA LATERAL CLINICAL HISTORY: short of breath. TECHNIQUE: 2D digital imaging was performed. COMPARISON: CR XR PORTABLE CHEST AP from 06/18/2024 FINDINGS: 2 views: Heart size is normal. The mediastinum is not widened. Lungs are clear. No infiltrates nor pleural effusions. IMPRESSION: No acute pulmonary findings. DATA REPOSITORY: RADIATION DOSE DELIVERED:
[2024-11-11 01:14] LABS: ALT 25 U/L (14-59); AST 18 U/L (15-37); Albumin 3.8 g/dL (3.4-5.0); Alkaline Phosphatase 93 U/L (46-116); Anion Gap 13.6 mmol/L (3-11); BUN 10 mg/dL (7-18); Bilirubin, Total 0.8 mg/dL (0.2-1.0); CO2 21.4 mmol/L (21.0-32.0); Calcium 8.9 mg/dL (8.5-10.1); Chloride 106 mmol/L (98-107); Estimated GFR 75.34 (mL/min/1.73m2); Glucose 105 mg/dL (74-106); Lipase 27 U/L (<78); Potassium 3.0 mmol/L (3.5-5.1); Sodium 141 mmol/L (136-145); Total Protein 7.3 g/dL (6.4-8.2)
[2024-11-11 01:20] LABS: NT-proBNP 69 pg/mL (<300)
[2024-11-11 01:29] LABS: Magnesium 1.6 mg/dL (1.8-2.4); Troponin I 7 ng/L (<or=51)
[2024-11-11 01:31] LABS: D-Dimer 213 ng/mlFEU (<500)
--- NOTE | 2024-11-11 01:31 | DI.VRAD_ITS ---
PROCEDURE INFORMATION: Exam: XR Chest Exam date and time: 11/11/2024 1:05 AM Age: 34 years old Clinical indication: Shortness of breath TECHNIQUE: Imaging protocol: Radiologic exam of the chest. Views: 2 views. COMPARISON: CR XR PORTABLE CHEST AP 06/18/2024 3:55 PM FINDINGS: Lungs: No focal consolidation seen. Pleural spaces: No large pleural effusion seen. Heart/Mediastinum: No cardiomegaly. Bones/joints: No acute abnormality. IMPRESSION: No acute findings to explain reported symptoms. Dictated and Authenticated by: Claire Hector MD. Orderin Myron Shafer MD
[2024-11-11] MEDS: Potassium Chloride 20 MEQ TABCR 40 MEQ PO (01:33)
[2024-11-11] MEDS: Magnesium Gluconate 500 MG TAB 1000 MG PO (01:43)
[2024-11-11 02:03] LABS: HCG Qual (Urine) Negative
[2024-11-11 02:13] LABS: Troponin I 6 ng/L (<or=51)
[2024-11-11 02:15] LABS: Lab Add On Test DONE
[2024-11-11 02:25] LABS: HCG Qual (Serum) Negative
--- NOTE | 2024-11-13 09:17 | NUR.NOTE ---
Access chart to reconcile EKG orders with EKG's in [facility]. Duplicate order cancelled. Nursing Note:
== END 2024-11-11 02:41 | disposition home or self-care (01) ==
PROVIDERS: Emergency Provider Student in an Organized Health Care Education/Training Program; PCP Nurse Practitioner
DX: R07.9 Chest pain, unspecified (principal); R06.02 Shortness of breath; E87.6 Hypokalemia; K21.9 Gastro-esophageal reflux disease without esophagitis
CPT/HCPCS: 36415; 80053; 82805; 83690; 93005; 94640; 96365; 99284; 71046; 81025; 83735; 83880; 84484; 84703; 85025; 85379; 93010; J0131; J7613

== ENCOUNTER 2024-11-15 15:09 | Outpatient (REF) | payer OTHER, SELFPAY | END 2024-11-15 15:10 | disposition home or self-care (01) | LOC: LBN 15:09 | PROVIDERS: PCP Nurse Practitioner; Visit Provider Physician Assistant Surgical | DX: J45.909 Unspecified asthma, uncomplicated (principal) | CPT/HCPCS: 82785 ==